=== PATIENT | male | born 1970 | race Two or more races ===

== ENCOUNTER 2020-04-09 16:51 | Inpatient (IN) | payer SELFPAY ==
[~2020-04-09] VITALS: Ht 170.2 cm; Wt 77.1 kg
--- NOTE | 2020-04-09 17:00 | NUR ---
ED Nurse Note: Pt brought in by ambulance from home c/o SOB and weakness x 5 days with fever. Per EMS, O2 sat 89% on room air. Pt arrives on 3 L NC with o2 sat 92%. Oxygen increased to 2 L NC, O2 sat 96% now. Respirations tachy and mildly labored. Pt afebrile upon arrival, reports taking tylenol before coming. Pt reports covid positive. A+Ox4, speaking in complete sentences. Addendum: 04/09/20 at 1834 by BDUTTON CORRECT TIME 1800
[2020-04-09 18:00] VITALS: BP 142/86
--- NOTE | 2020-04-09 18:12 | Emergency Room Report ---
History of Present Illness General Chief Complaint: Dyspnea/Respdistress Source: EMS Present Illness HPI Disclaimer: Please note that this report is being documented using [email or web address] technology. This can lead to erroneous entry secondary to incorrect interpretation by the dictating instrument. HPI: 49-year-old male no reported past medical history presents for shortness of breath from home. Patient apparently went to [facility] on the , was diagnosed with pneumonia and started on p.o. antibiotics. He did have coronavirus testing but states he does not know the result. His daughter did have COVID-19 over the past month. Today's with shortness of breath was worse. Associated with coughing. Brought in by EMS found to be hypoxic around 87% on room air. He denies any pain nausea or vomiting at this time. Allergies: Coded Allergies: No Known Allergies (Unverified , 04/09/20) COVID-19 Screening Contact w/high risk pt: No Experienced COVID-19 symptoms?: Yes COVID-19 Testing performed CRM ADMINISTRATOR: Yes COVID-19 Screening: Positive COVID-19 COVID-19 Testing Source: 04/01/20 Patient History Reviewed Nursing Documentation: PMH: Agreed; PSxH: Agreed Nursing Documentation-PMH Past Medical History: No Stated History Review of Systems All Other Systems: negative except mentioned in HPI Physical Exam Vital Signs Date Time Temp Pulse Resp B/P (MAP) Pulse Ox O2 Delivery O2 Flow Rate FiO2 04/09/20 16:54 98.8 60 16 147/81 (103) 98 Nasal Cannula 2.0 Sp02 EP Interpretation: reviewed, abnormal General Appearance: well appearing, mild distress Head: normocephalic, atraumatic Eyes: bilateral eye PERRL, bilateral eye EOMI ENT: hearing grossly normal, moist mucus membranes Neck: full range of motion, supple Respiratory: lungs clear, normal breath sounds, no rhonchi, no retraction, respiratory distress Cardiovascular #1: normal peripheral pulses, regular rate, rhythm, no murmur Gastrointestinal: non tender, soft, non-distended, no guarding Neurologic: alert, oriented x3, no focal defects Skin: normal color, warm/dry Procedures Critical Care Time Critical Care Time Critical care is managed patient to presentation with COVID-19 requiring my acute intervention. Critical care time is 35 minutes and excludes procedures. Medical Decision Making Diagnostic Impression: Primary Impression: Pneumonia due to COVID-19 virus Additional Impression: Hypoxia ER Course MDM: Differential diagnosis included but not limited to COVID-19, pneumonia, hypoxia, CHF to name a few Clinical course-IV inserted, septic work-up initiated, IV fluids, IV antibiot ics, IV Decadron given. X-ray demonstrated bilateral infiltrates. COVID-19 testing was positive. Has been worsening over the past week. Had been seen at [facility] approximately 1 week ago and has worsened since especially today. Patient requiring oxygen supplementation in the ER and will require admission the hospital for further observation and treatment. Will be admitted to the medical floor. Labs - Laboratory Tests Test 04/09/20 18:05 04/09/20 18:45 White Blood Count 12.1 K/UL (4.8-10.8) H Red Blood Count 5.15 M/UL (4.70-6.10) Hemoglobin 15.5 G/DL (14.2-18.0) Hematocrit 47.9 % (42.0-52.0) Mean Corpuscular Volume 93 FL (80-99) Mean Corpuscular Hemoglobin 30.1 PG (27.0-31.0) Mean Corpuscular Hemoglobin Concent 32.3 G/DL (32.0-36.0) Red Cell Distribution Width 12.4 % (11.6-14.8) Platelet Count 366 K/UL (150-450) Mean Platelet Volume 8.4 FL (6.5-10.1) Neutrophils (%) (Auto) 88.3 % (45.0-75.0) H Lymphocytes (%) (Auto) 7.5 % (20.0-45.0) L Monocytes (%) (Auto) 4.0 % (1.0-10.0) Eosinophils (%) (Auto) 0.0 % (0.0-3.0) Basophils (%) (Auto) 0.2 % (0.0-2.0) Prothrombin Time 10.2 SEC (9.30-11.50) Prothrombin Time INR 0.9 (0.9-1.1) Activated Partial Thromboplast Time 27 SEC (23-33) D-Dimer 0.30 mg/L FEU (0.00-0.49) Urine Color Pending Urine Appearance Pending Urine pH Pending Urine Specific [place] Pending Urine Protein Pending Urine Glucose (UA) Pending Urine Ketones Pending Urine Blood Pending Urine Nitrite Pending Urine Bilirubin Pending Urine Urobilinogen Pending Urine Leukocyte Esterase Pending Sodium Level 134 MMOL/L (136-145) L Potassium Level 4.4 MMOL/L (3.5-5.1) Chloride Level 98 MMOL/L (98-107) Carbon Dioxide Level 27 MMOL/L (21-32) Anion Gap 9 mmol/L (5-15) Blood Urea Nitrogen 13 mg/dL (7-18) Creatinine 0.9 MG/DL (0.55-1.30) Estimated Glomerular Filtration Rate > 60 mL/min (>60) Glucose Level 123 MG/DL (74-106) H Lactic Acid Level 2.40 mmol/L (0.4-2.0) H Calcium Level 8.6 MG/DL (8.5-10.1) Ferritin 993 NG/ML (8-388) H Total Bilirubin 0.8 MG/DL (0.2-1.0) Aspartate Amino Transferase (AST) 110 U/L (15-37) H Alanine Aminotransferase (ALT) 169 U/L (12-78) H Alkaline Phosphatase 322 U/L (46-116) H Lactate Dehydrogenase 446 U/L (81-234) H Troponin I 0.000 ng/mL (0.000-0.056) C-Reactive Protein, Quantitative Pending Pro-B-Type Natriuretic Peptide 95 pg/mL (0-125) Total Protein 7.9 G/DL (6.4-8.2) Albumin 3.4 G/DL (3.4-5.0) Globulin 4.5 g/dL Albumin/Globulin Ratio 0.8 (1.0-2.7) L Lipase 430 U/L (73-393) H Arterial Blood pH 7.480 (7.350-7.450) Arterial Blood Partial Pressure CO2 34.2 mmHg (35.0-45.0) L Arterial Blood Partial Pressure O2 71.1 mmHg (75.0-100.0) L Arterial Blood HCO3 24.9 mmol/L (22.0-26.0) Arterial Blood Oxygen Saturation 94.9 % (95-100) L Arterial Blood Base Excess 1.8 (-2-2) Hakn Test Positive Microbiology Date/Time Source Procedure Growth Status 04/09/20 18:05 Nasopharynx SARS-CoV-2 RdRp Gene Assay - Final Complete On reevaluation: Patient improved on supplemental oxygen Plan-admission to the medical floor under Dr. Macias EKG Diagnostic Results Rate: normal Rhythm: NSR ST Segments: no acute changes Rhythm Strip Diag. Results EP Interpretation: yes Rate: 90 Rhythm: NSR, no ectopy Chest X-Ray Diagnostic Results Chest X-Ray Diagnostic Results : # of Views/Limited/Complete: 1 View Indication: Shortness of Breath EP Interpretation: Yes Interpretation: other - Bilateral multifocal infiltrates no pneumothorax or pulmonary edema Last Vital Signs Date Time Temp Pulse Resp B/P (MAP) Pulse Ox O2 Delivery O2 Flow Rate FiO2 04/09/20 16:54 98.8 60 16 147/81 (103) 98 Nasal Cannula 2.0 Status: improved Disposition: ADMITTED INPATIENT Condition: Serious Referrals: NOT CHOSEN LARISA/,REFERRING (PCP) Ahmet Joshi M.D. Apr 09, 2020 18:12
[2020-04-09 18:38] LABS: HEMATOCRIT 47.9 % (42.0-52.0); HEMOGLOBIN 15.5 G/DL (14.2-18.0); MEAN CORPUSCULAR VOLUME 93 FL (80-99); PLATELET COUNT 366 K/UL (150-450); RED BLOOD COUNT 5.15 M/UL (4.70-6.10); RED CELL DISTRIBUTION WIDTH 12.4 % (11.6-14.8); WHITE BLOOD COUNT 12.1 K/UL (4.8-10.8)
[2020-04-09 18:39] LABS: LYMPHOCYTES % (AUTO) 7.5 % (20.0-45.0); NEUTROPHILS % (AUTO) 88.3 % (45.0-75.0)
[2020-04-09 18:40] LABS: BASOPHILS % (AUTO) 0.2 % (0.0-2.0)
[2020-04-09 18:47] LABS: INR 0.9 (0.9-1.1)
[2020-04-09 18:54] LABS: ANION GAP 9 mmol/L (5-15); BLOOD UREA NITROGEN 13 mg/dL (7-18); CALCIUM 8.6 MG/DL (8.5-10.1); CARBON DIOXIDE 27 MMOL/L (21-32); CHLORIDE 98 MMOL/L (98-107); CREATININE 0.9 MG/DL (0.55-1.30); POTASSIUM 4.4 MMOL/L (3.5-5.1); SODIUM 134 MMOL/L (136-145)
[2020-04-09] MEDS ORDERED: dexAMETHasone 10mg/ml Inj IV ONE (19:00)
[2020-04-09] MEDS ORDERED: Azithromycin 500 MG in NS 275 ML IVPB ONE (19:00)
[2020-04-09] MEDS ORDERED: cefTRIAXone 1 GM in NS 55 ML IV ONE (19:00)
--- NOTE | 2020-04-09 19:10 | NUR ---
ED Nurse Note: Report given to SHERRY Bernstein. Pt in stable condition. plan of care endorsed.
[2020-04-09 19:11] LABS: ALANINE AMINOTRANSFERASE 169 U/L (12-78); ALBUMIN 3.4 G/DL (3.4-5.0); ALBUMIN/GLOBULIN RATIO 0.8 (1.0-2.7); ALKALINE PHOSPHATASE 322 U/L (46-116); ASPARTATE AMINO TRANSFERASE 110 U/L (15-37); BILIRUBIN,TOTAL 0.8 MG/DL (0.2-1.0); FERRITIN 993 NG/ML (8-388); LACTATE DEHYDROGENASE 446 U/L (81-234)
[2020-04-09 19:18] LABS: APPEARANCE,URINE CLEAR; BILIRUBIN, URINE NEGATIVE (NEGATIVE); GLUCOSE, URINE (UA) NEGATIVE (NEGATIVE); KETONES,URINE NEGATIVE (NEGATIVE); LEUKOCYTE ESTERASE ,URINE NEGATIVE (NEGATIVE); NITRITE,URINE NEGATIVE (NEGATIVE); PH,URINE 8 (4.5-8.0); PROTEIN,URINE 1+ (NEGATIVE); UROBILINOGEN,URINE 8 MG/DL (0.0-1.0)
--- NOTE | 2020-04-09 19:20 | NUR ---
ED Nurse Note: Recieved pt awake,A&Ox4, and verbal. Pt is on 4L nc satting 98%. vitals are stable, and no distress. we will keep monitoring the pt
[2020-04-09] MEDS ORDERED: Enoxaparin 40mg Inj SUBQ SCH (19:30)
[2020-04-09 19:50] LABS: COLOR,URINE YELLOW
[2020-04-09 20:45] VITALS: BP 135/78
--- NOTE | 2020-04-09 22:40 | NUR ---
TRANSFER TO FLOOR: Patient transferred to [facility] as ordered, per Colleen . Report given to SHERRY Good. all Belongings and medications sent with the pt. technical staff engineer took the pt on the floor in stable condition.
--- NOTE | 2020-04-09 22:50 | NUR ---
NURSE NOTES: Patient came from ER via gurney. A&OX4. NC 2L on. IV sites are patent and intact. Skin intact. All belonging were checked. Bed in lowest position. Call light within reach. Will continue to monitor.
[2020-04-09 23:00] VITALS: BP 114/77
[2020-04-09] MEDS ORDERED: VITAMIN C500 M1 ORAL (23:19)
[2020-04-09] MEDS ORDERED: DICYCLOMINE HCL20 M1 PO (23:19)
[2020-04-09] MEDS ORDERED: ZITHROMAX250 MG ORAL (23:19)
[2020-04-09] MEDS ORDERED: AMOXICILLIN500 MG ORAL (23:19)
[2020-04-09] MEDS ORDERED: ASPIRIN-LOW81 MG ORAL (23:19)
[2020-04-09] MEDS ORDERED: COMPAZINE5 MG PO (23:19)
[2020-04-09] MEDS ORDERED: VENTOLIN HFA18 GM INH (23:19)
[2020-04-09] MEDS ORDERED: VITAMIN D325 MC1 PO (23:19)
[2020-04-10] MEDS ORDERED: guaiFENesin 100mg/5ml Liq ud ORAL PRN (00:15)
[2020-04-10] MEDS ORDERED: Albuterol 90mcg Inhaler 8gm INH PRN (00:15)
[2020-04-10] MEDS ORDERED: Dicyclomine HCl 10mg/5ml oral soln ORAL PRN (01:00)
[2020-04-10] MEDS ORDERED: Prochlorperazine 10mg tab ORAL PRN (01:00)
[2020-04-10 04:00] VITALS: BP 111/70
[2020-04-10 06:50] LABS: BASOPHILS % (AUTO) 0.2 % (0.0-2.0); HEMATOCRIT 39.2 % (42.0-52.0); HEMOGLOBIN 13.4 G/DL (14.2-18.0); LYMPHOCYTES % (AUTO) 9.2 % (20.0-45.0); MEAN CORPUSCULAR VOLUME 92 FL (80-99); MONOCYTES % (AUTO) 6.3 % (1.0-10.0); NEUTROPHILS % (AUTO) 84.2 % (45.0-75.0); PLATELET COUNT 255 K/UL (150-450); RED BLOOD COUNT 4.28 M/UL (4.70-6.10); RED CELL DISTRIBUTION WIDTH 12.8 % (11.6-14.8); WHITE BLOOD COUNT 11.1 K/UL (4.8-10.8)
--- NOTE | 2020-04-10 07:20 | NUR ---
NURSE HAND-OFF: Important Events on Shift: Patient Status: Diet: Regular Pending Orders: Pending Results/Labs: Pending MD notification: Latest Vital Signs: Temperature 97.4 , Pulse 67 , B/P 111 /70 , Respiratory Rate 17 , O2 SAT 98 , Nasal Cannula, O2 Flow Rate 4.0 . Vital Sign Comment: Latest Schmidt Fall Score: 20 Fall Risk: Low Risk Safety Measures: Call light Within Reach, Bed Alarm Zone 1, Side Rails Side Rails x2, Bed position Low and Locked. Fall Precautions: Patient Fall Education Report given to Roberta POWELL.
--- NOTE | 2020-04-10 07:30 | NUR ---
NURSE NOTES: Patient is in bed awake and able to verbalize needs. Stable. Respirations even on 4l oxygen via nc. C/o dizziness. fall prevention education provided. patient instructed to use call light for assistance, verbalized understanding. Bed alarm on, fall precautions in place. vss. Patient is in bed in locked and lowest position with call light within reach. All safety measures provided. Will continue plan of care.
[2020-04-10 07:40] LABS: PHOSPHORUS 4.4 MG/DL (2.5-4.9)
[2020-04-10 07:46] LABS: ANION GAP 8 mmol/L (5-15); BLOOD UREA NITROGEN 16 mg/dL (7-18); CALCIUM 8.7 MG/DL (8.5-10.1); CARBON DIOXIDE 25 MMOL/L (21-32); CHLORIDE 102 MMOL/L (98-107); CREATININE 0.7 MG/DL (0.55-1.30); POTASSIUM 4.9 MMOL/L (3.5-5.1); SODIUM 135 MMOL/L (136-145)
[2020-04-10 08:00] VITALS: BP 145/84
[2020-04-10] MEDS: dexAMETHasone 10mg/ml Inj IV SCH (08:29)
[2020-04-10] MEDS: Aspirin EC 81mg tab ORAL SCH (08:29)
--- NOTE | 2020-04-10 08:42 | History & Physical ---
History of Present Illness General Reason for Hospitalization: Dyspnea/Respdistress Present Illness HPI 49-year-old male no reported past medical history presents for shortness of breath from home. Patient apparently went to [facility] on the , was diagnosed with pneumonia and started on p.o. antibiotics. He did have coronavirus testing but states he does not know the result. His daughter did have COVID-19 over the past month. Today's with shortness of breath was worse. Associated with coughing. Brought in by EMS found to be hypoxic around 87% on room air. He denies any pain nausea or vomiting at this time. Allergies: Coded Allergies: No Known Allergies (Unverified , 04/09/20) COVID-19 Screening Contact w/high risk pt: Yes Experienced COVID-19 symptoms?: Yes Coronavirus symptoms experienc: Fatigue, Shortness of Breath, Cough Medication History Scheduled Amoxicillin* (Amoxil*), 500 MG ORAL EVERY 8 HOURS, (Reported) Ascorbic Acid* (Vitamin C*), 500 MG ORAL TWICE A DAY, (Reported) Aspirin (Aspirin EC), 81 MG ORAL DAILY, (Reported) Azithromycin* (Zithromax*), 250 MG ORAL DAILY, (Reported) Cholecalciferol (Vitamin D3) (Vitamin D3), 50 MCG PO DAILY, (Reported) Prochlorperazine Maleate (Compazine), 5 MG PO BID, (Reported) Scheduled PRN Albuterol Sulfate (Ventolin Hfa), 2 PUFFS INH EVERY 6 HOURS PRN for Shortness of Breath, (Reported) Dicyclomine Hcl (Dicyclomine Hcl), 20 MG PO QID PRN for cramping, (Reported) [Tylenol 650MG Er Tab], 1 TAB PO Q8H PRN for For Pain, (Reported) Discontinued Medications Cholecalciferol (Vitamin D3) (Vitamin D3*), 25 MCG PO DAILY, (Reported) Discontinued Reason: Prescription changed Patient History Healthcare decision maker Resuscitation status Advanced Directive on File Review of Systems Review of Symptoms General ROS: + fevers Psychological ROS: no depression or mood changes, no memory loss Ophthalmic ROS: no visual changes or eye irritation ENT ROS: no nasal congestion, hearing loss, dizziness Allergy and Immunology ROS: no allergic symptoms or urticaria Hematological and Lymphatic ROS: no swollen glands, unusual bleeding or bruising Endocrine ROS: no polyuria, polydipsia, weight changes, temperature intolerance Respiratory ROS: + cough, + SOB Cardiovascular ROS: no chest pain or dyspnea on exertion Gastrointestinal ROS: denies abdominal pain, bright red blood in stool. Musculoskeletal ROS: no myalgias or arthralgias Neurological ROS: no TIA or stroke symptoms Dermatological ROS: no new or changing skin lesions, rashes or pruritis Physical Exam Physical Exam General appearance: alert, cooperative, no distress, appears stated age Head: Normocephalic, without obvious abnormality, atraumatic Eyes: conjunctivae/corneas clear. PERRL, EOM's intact. Fundi benign Throat: Lips, mucosa, and tongue normal. Teeth and gums normal Neck: supple, symmetrical, trachea midline, no adenopathy, thyroid: not enlarged, symmetric, no tenderness/mass/nodules, no carotid bruit and no JVD Lungs: clear to auscultation bilaterally Heart: regular rate and rhythm, S1, S2 normal, no murmur, click, rub or gallop Abdomen: soft, non-tender. Bowel sounds normal. No masses, no organomegaly Extremities: extremities normal, atraumatic, no cyanosis or edema Pulses: 2+ and symmetric Skin: Skin color, texture, turgor normal. No rashes or lesions Neurologic: Grossly normal Last 24 Hour Vital Signs Date Time Temp Pulse Resp B/P (MAP) Pulse Ox O2 Delivery O2 Flow Rate FiO2 04/10/20 04:00 97.4 67 17 111/70 (84) 98 04/09/20 23:35 Nasal Cannula 4.0 04/09/20 23:00 Nasal Cannula 4.0 04/09/20 23:00 98.4 75 20 114/77 (89) 98 04/09/20 22:40 97.9 84 24 136/72 98 Nasal Cannula 4.0 04/09/20 20:45 98.2 86 21 135/78 98 Nasal Cannula 4.0 04/09/20 18:00 98.5 92 25 142/86 96 Nasal Cannula 4.0 04/09/20 18:00 95 26 Nasal Cannula 2.0 04/09/20 16:54 98.8 60 16 147/81 (103) 98 Nasal Cannula 2.0 Intake and Output 04/09/20 04/10/20 19:00 07:00 Intake Total 360 ml Balance 360 ml Intake Other 360 ml # Voids 1 Laboratory Tests Test 04/09/20 18:05 04/09/20 18:45 04/09/20 22:18 04/10/20 05:07 White Blood Count 12.1 K/UL (4.8-10.8) H 11.1 K/UL (4.8-10.8) H Red Blood Count 5.15 M/UL (4.70-6.10) 4.28 M/UL (4.70-6.10) L Hemoglobin 15.5 G/DL (14.2-18.0) 13.4 G/DL (14.2-18.0) L Hematocrit 47.9 % (42.0-52.0) 39.2 % (42.0-52.0) L Mean Corpuscular Volume 93 FL (80-99) 92 FL (80-99) Mean Corpuscular Hemoglobin 30.1 PG (27.0-31.0) 31.3 PG (27.0-31.0) H Mean Corpuscular Hemoglobin Concent 32.3 G/DL (32.0-36.0) 34.2 G/DL (32.0-36.0) Red Cell Distribution Width 12.4 % (11.6-14.8) 12.8 % (11.6-14.8) Platelet Count 366 K/UL (150-450) 255 K/UL (150-450) Mean Platelet Volume 8.4 FL (6.5-10.1) 7.8 FL (6.5-10.1) Neutrophils (%) (Auto) 88.3 % (45.0-75.0) H 84.2 % (45.0-75.0) H Lymphocytes (%) (Auto) 7.5 % (20.0-45.0) L 9.2 % (20.0-45.0) L Monocytes (%) (Auto) 4.0 % (1.0-10.0) 6.3 % (1.0-10.0) Eosinophils (%) (Auto) 0.0 % (0.0-3.0) 0.0 % (0.0-3.0) Basophils (%) (Auto) 0.2 % (0.0-2.0) 0.2 % (0.0-2.0) Prothrombin Time 10.2 SEC (9.30-11.50) Prothromb Time International Ratio 0.9 (0.9-1.1) Activated Partial Thromboplast Time 27 SEC (23-33) D-Dimer 0.30 mg/L FEU (0.00-0.49) Urine Color Yellow Urine Appearance Clear Urine pH 8 (4.5-8.0) Urine Specific [place] 1.010 (1.005-1.035) Urine Protein 1+ (NEGATIVE) H Urine Glucose (UA) Negative (NEGATIVE) Urine Ketones Negative (NEGATIVE) Urine Blood Negative (NEGATIVE) Urine Nitrite Negative (NEGATIVE) Urine Bilirubin Negative (NEGATIVE) Urine Urobilinogen 8 MG/DL (0.0-1.0) H Urine Leukocyte Esterase Negative (NEGATIVE) Urine RBC 0-2 /HPF (0 - 0) H Urine WBC 0-2 /HPF (0 - 0) Urine Squamous Epithelial Cells None /LPF (NONE/OCC) Urine Bacteria Occasional /HPF (NONE) Sodium Level 134 MMOL/L (136-145) L 135 MMOL/L (136-145) L Potassium Level 4.4 MMOL/L (3.5-5.1) 4.9 MMOL/L (3.5-5.1) Chloride Level 98 MMOL/L (98-107) 102 MMOL/L (98-107) Carbon Dioxide Level 27 MMOL/L (21-32) 25 MMOL/L (21-32) Anion Gap 9 mmol/L (5-15) 8 mmol/L (5-15) Blood Urea Nitrogen 13 mg/dL (7-18) 16 mg/dL (7-18) Creatinine 0.9 MG/DL (0.55-1.30) 0.7 MG/DL (0.55-1.30) Estimat Glomerular Filtration Rate > 60 mL/min (>60) > 60 mL/min (>60) Glucose Level 123 MG/DL (74-106) H 128 MG/DL (74-106) H Lactic Acid Level 2.40 mmol/L (0.4-2.0) H 1.20 mmol/L (0.66-2.22) Calcium Level 8.6 MG/DL (8.5-10.1) 8.7 MG/DL (8.5-10.1) Ferritin 993 NG/ML (8-388) H Total Bilirubin 0.8 MG/DL (0.2-1.0) Aspartate Amino Transf (AST/SGOT) 110 U/L (15-37) H Alanine Aminotransferase (ALT/SGPT) 169 U/L (12-78) H Alkaline Phosphatase 322 U/L (46-116) H Lactate Dehydrogenase 446 U/L (81-234) H Troponin I 0.000 ng/mL (0.000-0.056) C-Reactive Protein, Quantitative 79.7 mg/L (<5) H Pro-B-Type Natriuretic Peptide 95 pg/mL (0-125) Total Protein 7.9 G/DL (6.4-8.2) Albumin 3.4 G/DL (3.4-5.0) Globulin 4.5 g/dL Albumin/Globulin Ratio 0.8 (1.0-2.7) L Lipase 430 U/L (73-393) H Arterial Blood pH 7.480 (7.350-7.450) Arterial Blood Partial Pressure CO2 34.2 mmHg (35.0-45.0) L Arterial Blood Partial Pressure O2 71.1 mmHg (75.0-100.0) L Arterial Blood HCO3 24.9 mmol/L (22.0-26.0) Arterial Blood Oxygen Saturation 94.9 % (95-100) L Arterial Blood Base Excess 1.8 (-2-2) Hank Test Positive Phosphorus Level 4.4 MG/DL (2.5-4.9) Magnesium Level 2.3 MG/DL (1.8-2.4) Microbiology Date/Time Source Procedure Growth Status 04/09/20 18:05 Nasopharynx SARS-CoV-2 RdRp Gene Assay - Final Complete Height (Feet): 5 Height (Inches): 7.00 Weight (Pounds): 170 Medications Current Medications Medications (Trade) Dose Ordered Sig/Dequan Route PRN Reason Start Time Stop Time Status Last Admin Dose Admin Acetaminophen (Tylenol) 650 mg Q6H PRN ORAL Temp >100.5 04/10/20 00:15 05/10/20 00:14 Albuterol Sulfate (Proventil MDI) 2 puff Q4H PRN INH Shortness of Breath 04/10/20 00:15 07/09/20 00:14 Aspirin (Ecotrin) 81 mg DAILY ORAL 1/7/21 09:00 05/25/20 08:59 04/10/20 08:29 Dexamethasone Sodium Phosphate (Decadron 10mg/ ml Inj) 6 mg DAILY IV 04/10/20 09:00 04/19/20 08:59 04/10/20 08:29 Dicyclomine HCl (Bentyl) 20 mg QIDPRN PRN ORAL Abdominal cramps 04/10/20 01:00 07/09/20 00:59 Guaifenesin (Robitussin) 100 mg Q6H PRN ORAL For Cough 04/10/20 00:15 07/09/20 00:14 Heparin Sodium (Porcine) (Heparin 5000 units/ml) 5,000 units EVERY 12 HOURS SUBQ 04/10/20 09:00 05/25/20 08:59 04/10/20 08:30 Prochlorperazine (Compazine) 5 mg BID PRN ORAL Nausea & Vomiting 04/10/20 01:00 05/10/20 00:59 Assessment/Plan Diagnosis [facility]: #COVID pneumonia #hypoxemic resp failure #sepsis - admit inpatient - ID eval - pulm eval - dexamethsone - remdesevir - breathing tx - supplemental O2 - DCT ppx - monitor labs - avoid nephrotoxins [facility] Hospital declaration I spent 70 minutes on this patient's case, and 35 minutes was dedicated to counseling and/or care coordination. MIPS (Merit-based Incentive Payment System) Applicable CPT: 88715, 15422 CHECK ALL THAT ARE MET: Measure #5 (CHF): All ages. Prescribe DORIS/ARB upon discharge for patients with left ventricular systolic dysfunction. If not, the reason is clearly documented in the medical chart. Measure #8 (CHF): All ages. Prescribe a beta camille upon discharge for patients with left ventricular systolic dysfunction. If not, the reason is clearly documented in the medical chart. Measure #47 Advance care plan or surrogate decision maker documented in the medical record. Measure #130 The provider has documented, updated, or reviewed the patients current medication list and has documented it in the patients note. Measure #374 (All): Send report to referring provider. Measure #407(Sepsis due to MSSA bacteremia): Age 18+ Patient treated with a beta-lactam antibiotic (Nafcillin, Oxacillin or Cefazolin) as definitive therapy. MEDICAL COMPLEXITY High complexity medical decision making (need 2/3 categories) Problem - need 4 points Acute/new problem with new plan for workup (4 points, 1 max) Acute/new problem without additional workup (3 points, 1 max) Unstable chronic problem actively being managed (2 point each, 2 max) Stable chronic problem actively being managed (1 point each, 2 max) Self-limited/transient process (constipation, muscle ache, etc) (1 point each, 2 max) Data - need 4 points Reviewed labs/imaging studies (1 points, 2 max) Independent review of imaging (EKG, xrays, etc) (2 points, 2 max) Discussed case with consult/other MD/RN (2 points, 2 max) High Risk - qualify if have one of the following: Severe exacerbation of acute problem, acute mental status change, IV live cotics, monitoring drug levels (vancomycin, INR, tacrolimus etc) Gokul Macias M.D. Apr 10, 2020 08:42
[2020-04-10] MEDS ORDERED: Heparin 5000 units/ml inj SUBQ SCH (09:00)
[2020-04-10 12:00] VITALS: BP 120/81
--- NOTE | 2020-04-10 12:10 | NUR ---
CASE MANAGEMENT:INITIAL REVIEW 49 YO MALE TON FROM HOME CC;DYSPNEA. RESPIRATORY DISTRESS. SI;COVID PNEUMONIA. HYPOXIA. 98.5 95 26 147/81 96% 4L NC WBC 12.1 NA 134 FERRITIN 993 AST 110 ALT 169 ALP 322 LDH 446 CRP 79.7 LIPASE 430 UA+ PROTEIN, UROBILINOGEN, RBC COVID RAPID ~ POSITIVE IS;ZITHROMAX IV DECADRON IV ROCEPHIN IV IVF NS BOLUS LOVENOX SQ ADMITTED TO MED SURG MED SURG STATUS DCP;FROM HOME Addendum: 04/10/20 at 1238 by BE MURRELL LVN CM INTERQUAL CRITERIA MET
[2020-04-10] MEDS ORDERED: TYLENOL 650 MG PO (14:26)
[2020-04-10] MEDS ORDERED: VITAMIN D350 MCG PO (14:26)
--- NOTE | 2020-04-10 14:33 | Consultation ---
Consult Note Consult Note DATE OF CONSULTATION: 04/10/2020 CONSULTING PHYSICIAN: Ever Topete MD. ATTENDING PHYSICIAN: Dr. Macias REASON FOR CONSULTATION: COVID-19 pneumonia, hypoxia HISTORY OF PRESENT ILLNESS: This is a 49-year-old male with no pertinent past medical history who presented for shortness of breath from home. Patient apparently went to [facility] on 30 March and was diagnosed with pneumonia and was started on oral antibiotics. Patient reported of sick contact with his daughter who had COVID-19 within the past month. He reports that shortness of breath is associated with cough. He was hypoxic around 87% on room air on arrival. Patient's initial laboratory studies show leukocytosis, mild anemia, hyponatremia, hyperglycemia, and respiratory alkalosis. Chest x-ray read by ER MD shows bilateral multifocal infiltrates without pulmonary edema. On evaluation patient is laying in bed with increased work of breathing on 4 L NC. Patient is saturating at 96%. PAST MEDICAL HISTORY: None according to patient MEDICATIONS: Albuterol, amoxicillin, ascorbic acid, aspirin, azithromycin, cho lecalciferol, dicyclomine, prochlorperazine ALLERGIES: No known allergies FAMILY HISTORY: Unknown PERSONAL/SOCIAL HISTORY: Patient lives at home REVIEW OF SYSTEMS: None except for mentioned in HPI PHYSICAL EXAMINATION: VITAL SIGNS: Blood pressure 120/81, heart rate 72, respiratory rate 18, weight 77 kg, height 170 cm General: Patient in bed, NAD HEENT: Head exam reveals that the head is normocephalic, atraumatic without deformity or unusual swelling. Pupils are PERRLA. Wearing facemask CHEST AND LUNGS: Increased work of breathing, reveals clear, normal, symmetrical breath sounds with no adventitious sounds. CARDIOVASCULAR: Reveals normal S1, S2 without murmurs, rubs, or clicks. ABDOMEN: Soft with no tenderness or organomegaly. RECTAL: Deferred. MUSCULOSKELETAL: There is no tenderness to palpation. Range of motion is normal. NEUROLOGICAL: Alert and oriented x3 , nonfocal LABORATORY DATA: Laboratory testing shows WBC 11.1, hemoglobin 13.4, hematocrit 39.2. Chemistries show sodium 135, glucose 128, lactate 2.4 Urinalysis shows 1+ protein Assessment/Plan 1. COVID-19 pneumonia with hypoxia -On remdesivir per ID (04/10-) -On Decadron - s/p broad-spectrum antibiotics in ER -Continue supplemental oxygen 2. Leukocytosis, likely secondary to #1 -Management per ID 3. Hyponatremia -Per primary MD 4. Hyperglycemia -Monitor BG -Of note patient is on Decadron 5. Elevated inflammatory markers, likely secondary to #1 - We will continue lovenox 6. Elevated LFT -Trend LFTs -Per primary MD The care for this patient was discussed with my supervising physician. Time spent for this case was approximately 31 minutes. Da Santillan Apr 10, 2020 14:33
--- NOTE | 2020-04-10 15:09 | Diagnostic Imaging Report ---
Procedure: XRAY Chest 1v Reason for study: Reason For Exam: SOB Comparison films: None. FINDINGS: A single one view chest is obtained. Vascularity is normal. There are bilateral patchy infiltrates. Cardiac and mediastinal silhouette are within normal limits. CP angles are sharp. The bony thorax appear unremarkable. IMPRESSION: Bilateral patchy infiltrates.
[2020-04-10 16:00] VITALS: BP 113/78
--- NOTE | 2020-04-10 16:44 | Consultation ---
DATE OF CONSULTATION: 04/10/2020 INFECTIOUS DISEASE CONSULT This consult is for coverage of Dr. Sanders. PRIMARY ATTENDING PHYSICIAN: Gokul Macais M.D. REASON FOR CONSULT: COVID-19 disease. HISTORY OF PRESENT ILLNESS: The patient is a 49-year-old male admitted yesterday complaining of shortness of breath. He was diagnosed with pneumonia in [facility] on March 28, 2020, but was discharged home. According to the chart, he was positive for COVID-19 since 04/01/2020. At the time of admission, he was hypoxemic with O2 saturation of 87% on room air. PAST MEDICAL HISTORY: Insignificant. MEDICATIONS: Getting aspirin, heparin, dexamethasone, dicyclomine, Compazine, Tylenol, albuterol. Got one dose ceftriaxone and azithromycin in the ER. SOCIAL HISTORY: . Denies alcohol, drug abuse, or smoking. States that he has 2 daughters that are COVID positive from the [facility]. REVIEW OF SYSTEMS: Has shortness of breath, coughing, profound weakness when he stands up. Substernal chest pain. PHYSICAL EXAMINATION: VITAL SIGNS: Temperature 97.9, pulse 81, blood pressure 145/84. GENERAL APPEARANCE: The patient seems to have normal weight. HEAD AND NECK: [place] conjunctivae. HEART: Normal rate. LUNGS: Clear. Getting oxygen by nasal cannula 4 L/minute. ABDOMEN: Soft and nontender. EXTREMITIES: No edema. NEUROLOGIC: He is awake, alert, and oriented x3. LABORATORY AND DIAGNOSTIC DATA: WBC today is 11.1, hemoglobin 13.4, hematocrit 39.2, platelets are 255. ABG showed a pH of 7.48, pCO2 of 34, pO2 of 71.1, O2 saturation 94.9. COVID test was positive. IMPRESSION: COVID-19 disease, hypoxia. RECOMMENDATIONS: Continue dexamethasone. It seemed that the patient passed a 10-day window for starting remdesivir. We will follow up the clinical course. Continue isolation. At the end of my exam, I thank Dr. Macias for involving me in the care of this patient. Tom Quan M.D. DR: MELISSA JOB#: [id number] CC: DINESH
--- NOTE | 2020-04-10 19:22 | NUR ---
NURSE HAND-OFF: Important Events on Shift: o2 therapy Patient Status: stable Diet: reg Pending Orders: n/a Pending Results/Labs:n/a Pending MD notification:n/a Latest Vital Signs: Temperature 97.9 , Pulse 75 , B/P 113 /78 , Respiratory Rate 18 , O2 SAT 95 , Nasal Cannula, O2 Flow Rate 4.0 . Vital Sign Comment: n/a Latest Schmidt Fall Score: 20 Fall Risk: Low Risk Safety Measures: Call light Within Reach, Bed Alarm Zone 1, Side Rails Side Rails x2, Bed position Low and Locked. Fall Precautions: Patient Fall Education Report given to Hector POWELL.
[2020-04-10 19:41] VITALS: BP 114/74
--- NOTE | 2020-04-10 19:42 | NUR ---
NURSE NOTES: Patient in bed, awake, alert and verbally responsive. Able to make needs known. REspiration is even, nasal cannula 4 L. Sob on exertion/ambulation. No complaint of pain or discomfort noted. Abdomen is soft and non distended. Iv site noted. Kept clean comfortable. Bed in low and locked position. Provided safe environment. Call light is at bedside. Will continue plan of care.
[2020-04-10] MEDS ORDERED: Loading Dose:Remdesivir 200mg/NS 210ml IV SCH ×2 (21:00)
[2020-04-11] VITALS: BP 109/68
[2020-04-11 04:00] VITALS: BP 113/76
[2020-04-11 06:56] LABS: BASOPHILS % (AUTO) 1.1 % (0.0-2.0); EOSINOPHILS % (AUTO) 0.1 % (0.0-3.0); HEMATOCRIT 38.2 % (42.0-52.0); HEMOGLOBIN 13.3 G/DL (14.2-18.0); LYMPHOCYTES % (AUTO) 12.6 % (20.0-45.0); MEAN CORPUSCULAR VOLUME 90 FL (80-99); MONOCYTES % (AUTO) 7.8 % (1.0-10.0); NEUTROPHILS % (AUTO) 78.4 % (45.0-75.0); PLATELET COUNT 395 K/UL (150-450); RED BLOOD COUNT 4.24 M/UL (4.70-6.10); RED CELL DISTRIBUTION WIDTH 12.9 % (11.6-14.8); WHITE BLOOD COUNT 12.6 K/UL (4.8-10.8)
--- NOTE | 2020-04-11 07:16 | NUR ---
NURSE HAND-OFF: Important Events on Shift:WNL Patient Status: Diet: Pending Orders: Pending Results/Labs: Pending MD notification: Latest Vital Signs: Temperature 97.0 , Pulse 58 , B/P 113 /76 , Respiratory Rate 20 , O2 SAT 96 , Nasal Cannula, O2 Flow Rate 4.0 . Vital Sign Comment: Latest Schmidt Fall Score: 20 Fall Risk: Low Risk Safety Measures: Call light Within Reach, Bed Alarm Zone 1, Side Rails Side Rails x2, Bed position Low and Locked. Fall Precautions: Patient Fall Education Report given to Yadiel Madera.
[2020-04-11 07:19] LABS: ALANINE AMINOTRANSFERASE 160 U/L (12-78); ALBUMIN 2.6 G/DL (3.4-5.0); ALBUMIN/GLOBULIN RATIO 0.6 (1.0-2.7); ALKALINE PHOSPHATASE 259 U/L (46-116); ANION GAP 8 mmol/L (5-15); ASPARTATE AMINO TRANSFERASE 84 U/L (15-37); BILIRUBIN,TOTAL 0.4 MG/DL (0.2-1.0); BLOOD UREA NITROGEN 18 mg/dL (7-18); CALCIUM 8.6 MG/DL (8.5-10.1); CARBON DIOXIDE 26 MMOL/L (21-32); CHLORIDE 103 MMOL/L (98-107); CREATININE 0.8 MG/DL (0.55-1.30); POTASSIUM 4.2 MMOL/L (3.5-5.1); SODIUM 137 MMOL/L (136-145)
--- NOTE | 2020-04-11 07:30 | NUR ---
NURSE NOTES: Patient is in bed awake and able to verbalize needs. Stable. Breathing is even on 4L oxygen via nc, SOB noted upon exertion. Patient instructed to use call light for assistance, verbalized understanding. All safety measures provided. Patient is in bed in locked and lowest position with call light within reach. Will continue plan of care.
[2020-04-11 08:00] VITALS: BP 133/78
[2020-04-11] MEDS: Enoxaparin 40mg Inj SUBQ SCH (08:25)
[2020-04-11] MEDS: dexAMETHasone 10mg/ml Inj IV SCH (08:27)
[2020-04-11] MEDS: Aspirin EC 81mg tab ORAL SCH (08:27)
--- NOTE | 2020-04-11 10:45 | Pulmonology Progress Note ---
Subjective Constitutional: Reports: no symptoms HEENT: Repors: no symptoms Respiratory: Reports: dry cough, shortness of breath Cardiovascular: Reports: no symptoms Gastrointestinal/Abdominal: Reports: no symptoms Allergies: Coded Allergies: No Known Allergies (Unverified , 04/09/20) Objective Last 24 Hour Vital Signs Date Time Temp Pulse Resp B/P (MAP) Pulse Ox O2 Delivery O2 Flow Rate FiO2 04/11/20 04:00 97.0 58 20 113/76 (88) 96 04/11/20 00:00 97.3 59 16 109/68 (82) 95 04/10/20 20:19 Nasal Cannula 4.0 04/10/20 19:41 97.9 62 18 114/74 (87) 97 04/10/20 16:00 97.9 75 18 113/78 (90) 95 04/10/20 12:00 97.5 72 18 120/81 (94) 96 Intake and Output 04/10/20 04/11/20 19:00 07:00 Intake Total 600 ml 1250 ml Balance 600 ml 1250 ml Intake Oral 1000 ml IV Total 250 ml Other 600 ml # Voids 3 # Bowel Movements 1 Objective 04/11 saturating at 96% on 4L NC HEENT: atraumatic Respiratory: lungs clear Cardiovascular: normal rate, regular rhythm Abdomen: soft, non tender Microbiology Date/Time Source Procedure Growth Status 04/09/20 18:20 Blood Blood Culture - Preliminary NO GROWTH AFTER 24 HOURS Resulted 04/09/20 18:05 Nasopharynx SARS-CoV-2 RdRp Gene Assay - Final Complete 04/09/20 18:05 Blood Blood Culture - Preliminary NO GROWTH AFTER 24 HOURS Resulted Laboratory Tests 04/11/20 05:10: White Blood Count 12.6H, Red Blood Count 4.24L, Hemoglobin 13.3L, Hematocrit 38.2L, Mean Corpuscular Volume 90, Mean Corpuscular Hemoglobin 31.3H, Mean Corpuscular Hemoglobin Concent 34.7, Red Cell Distribution Width 12.9, Platelet Count 395#, Mean Platelet Volume 7.4, Neutrophils (%) (Auto) 78.4H, Lymphocytes (%) (Auto) 12.6L, Monocytes (%) (Auto) 7.8, Eosinophils (%) (Auto) 0.1, Basophils (%) (Auto) 1.1, Sodium Level 137, Potassium Level 4.2, Chloride Level 103, Carbon Dioxide Level 26, Anion Gap 8, Blood Urea Nitrogen 18, Creatinine 0.8, Estimat Glomerular Filtration Rate > 60, Glucose Level 112H, Calcium Level 8.6, Phosphorus Level 4.0, Magnesium Level 2.3, Total Bilirubin 0.4, Direct Bilirubin 0.2, Aspartate Amino Transf (AST/SGOT) 84H, Alanine Aminotransferase (ALT/SGPT) 160H, Alkaline Phosphatase 259H, Total Protein 6.9, Albumin 2.6L, Globulin 4.3, Albumin/Globulin Ratio 0.6L Current Medications Medications (Trade) Dose Ordered Sig/Dequan Route PRN Reason Start Time Stop Time Status Last Admin Dose Admin Acetaminophen (Tylenol) 650 mg Q6H PRN ORAL Temp >100.5 04/10/20 00:15 05/10/20 00:14 Albuterol Sulfate (Proventil MDI) 2 puff Q4H PRN INH Shortness of Breath 04/10/20 00:15 07/09/20 00:14 Aspirin (Ecotrin) 81 mg DAILY ORAL 04/10/20 09:00 05/25/20 08:59 04/11/20 08:27 Dexamethasone Sodium Phosphate (Decadron 10mg/ ml Inj) 6 mg DAILY IV 04/10/20 09:00 04/19/20 08:59 04/11/20 08:27 Dicyclomine HCl (Bentyl) 20 mg QIDPRN PRN ORAL Abdominal cramps 04/10/20 01:00 07/09/20 00:59 Enoxaparin Sodium (Lovenox) 40 mg DAILY SUBQ 04/11/20 09:00 07/10/20 08:59 04/11/20 08:25 Guaifenesin (Robitussin) 100 mg Q6H PRN ORAL For Cough 04/10/20 00:15 07/09/20 00:14 Prochlorperazine (Compazine) 5 mg BID PRN ORAL Nausea & Vomiting 04/10/20 01:00 05/10/20 00:59 Remdesivir 100 mg/ Sodium Chloride 250 ml @ 250 mls/hr Q24H IV 04/11/20 21:00 04/14/20 21:59 Assessment/Plan Assessment/Plan 1. COVID-19 pneumonia with hypoxia -On remdesivir per ID (04/10-) -On Decadron (04/10-) - s/p broad-spectrum antibiotics in ER - Continue supplemental oxygen; wean down as tolerated 2. Leukocytosis, likely secondary to #1 -Management per ID 3. Hyponatremia; resolved -Per primary MD 4. Hyperglycemia -Monitor BG -Of note patient is on Decadron 5. Elevated inflammatory markers, likely secondary to #1 - We will continue lovenox 6. Elevated LFT -Trend LFTs; elevated but trending down -Per primary MD The care for this patient was discussed with my supervising physician. Time spent for this case was approximately 31 minutes. Da Santillan Apr 11, 2020 10:45
[2020-04-11 12:00] VITALS: BP 120/75
--- NOTE | 2020-04-11 12:11 | Infectious Diseases Prog Note ---
Assessment/Plan Assessment/Plan antibiotics ; remdesivir A 1. covid 19 pneumonia on 4 liters O2 with saturation 97 % P 1. continue remdesivir day 2 2. continue dexamethasone day 3 3. continue isolation Subjective Constitutional: Denies: fever, chills Respiratory: Reports: shortness of breath - less, dry cough Gastrointestinal/Abdominal: Denies: nausea, vomiting, diarrhea Musculoskeletal: Reports: pain - in back Allergies: Coded Allergies: No Known Allergies (Unverified , 04/09/20) Objective Last 24 Hour Vital Signs Date Time Temp Pulse Resp B/P (MAP) Pulse Ox O2 Delivery O2 Flow Rate FiO2 04/11/20 09:00 Nasal Cannula 4.0 04/11/20 08:00 97.9 63 20 133/78 (96) 97 04/11/20 04:00 97.0 58 20 113/76 (88) 96 04/11/20 00:00 97.3 59 16 109/68 (82) 95 04/10/20 20:19 Nasal Cannula 4.0 04/10/20 19:41 97.9 62 18 114/74 (87) 97 04/10/20 16:00 97.9 75 18 113/78 (90) 95 Height (Feet): 5 Height (Inches): 7.00 Weight (Pounds): 170 Microbiology Date/Time Source Procedure Growth Status 04/09/20 18:20 Blood Blood Culture - Preliminary NO GROWTH AFTER 24 HOURS Resulted 04/09/20 18:05 Nasopharynx SARS-CoV-2 RdRp Gene Assay - Final Complete 04/09/20 18:05 Blood Blood Culture - Preliminary NO GROWTH AFTER 24 HOURS Resulted Laboratory Tests Test 04/11/20 05:10 White Blood Count 12.6 K/UL (4.8-10.8) H Red Blood Count 4.24 M/UL (4.70-6.10) L Hemoglobin 13.3 G/DL (14.2-18.0) L Hematocrit 38.2 % (42.0-52.0) L Mean Corpuscular Volume 90 FL (80-99) Mean Corpuscular Hemoglobin 31.3 PG (27.0-31.0) H Mean Corpuscular Hemoglobin Concent 34.7 G/DL (32.0-36.0) Red Cell Distribution Width 12.9 % (11.6-14.8) Platelet Count 395 K/UL (150-450) # Mean Platelet Volume 7.4 FL (6.5-10.1) Neutrophils (%) (Auto) 78.4 % (45.0-75.0) H Lymphocytes (%) (Auto) 12.6 % (20.0-45.0) L Monocytes (%) (Auto) 7.8 % (1.0-10.0) Eosinophils (%) (Auto) 0.1 % (0.0-3.0) Basophils (%) (Auto) 1.1 % (0.0-2.0) Sodium Level 137 MMOL/L (136-145) Potassium Level 4.2 MMOL/L (3.5-5.1) Chloride Level 103 MMOL/L (98-107) Carbon Dioxide Level 26 MMOL/L (21-32) Anion Gap 8 mmol/L (5-15) Blood Urea Nitrogen 18 mg/dL (7-18) Creatinine 0.8 MG/DL (0.55-1.30) Estimat Glomerular Filtration Rate > 60 mL/min (>60) Glucose Level 112 MG/DL (74-106) H Calcium Level 8.6 MG/DL (8.5-10.1) Phosphorus Level 4.0 MG/DL (2.5-4.9) Magnesium Level 2.3 MG/DL (1.8-2.4) Total Bilirubin 0.4 MG/DL (0.2-1.0) Direct Bilirubin 0.2 MG/DL (0.0-0.3) Aspartate Amino Transf (AST/SGOT) 84 U/L (15-37) H Alanine Aminotransferase (ALT/SGPT) 160 U/L (12-78) H Alkaline Phosphatase 259 U/L (46-116) H Total Protein 6.9 G/DL (6.4-8.2) Albumin 2.6 G/DL (3.4-5.0) L Globulin 4.3 g/dL Albumin/Globulin Ratio 0.6 (1.0-2.7) L Current Medications Medications (Trade) Dose Ordered Sig/Dequan Route PRN Reason Start Time Stop Time Status Last Admin Dose Admin Acetaminophen (Tylenol) 650 mg Q6H PRN ORAL Temp >100.5 04/10/20 00:15 05/10/20 00:14 Albuterol Sulfate (Proventil I) 2 puff Q4H PRN INH Shortness of Breath 04/10/20 00:15 07/09/20 00:14 Aspirin (Ecotrin) 81 mg DAILY ORAL 04/10/20 09:00 05/25/20 08:59 04/11/20 08:27 Dexamethasone Sodium Phosphate (Decadron 10mg/ ml Inj) 6 mg DAILY IV 04/10/20 09:00 04/19/20 08:59 04/11/20 08:27 Dicyclomine HCl (Bentyl) 20 mg QIDPRN PRN ORAL Abdominal cramps 04/10/20 01:00 07/09/20 00:59 Enoxaparin Sodium (Lovenox) 40 mg DAILY SUBQ 04/11/20 09:00 07/10/20 08:59 04/11/20 08:25 Guaifenesin (Robitussin) 100 mg Q6H PRN ORAL For Cough 04/10/20 00:15 07/09/20 00:14 Prochlorperazine (Compazine) 5 mg BID PRN ORAL Nausea & Vomiting 04/10/20 01:00 05/10/20 00:59 Remdesivir 100 mg/ Sodium Chloride 250 ml @ 250 mls/hr Q24H IV 04/11/20 21:00 04/14/20 21:59 Chalino Sanders MD Apr 11, 2020 12:11
--- NOTE | 2020-04-11 12:58 | Cardiology Report ---
APPROVED REPORT EKG Measurement Heart [id number] <Conclusion> Normal sinus rhythm Normal ECG
--- NOTE | 2020-04-11 14:16 | NUR ---
CASE MANAGEMENT:REVIEW SI;COVID PNEUMONIA. HYPOXIA. 97.9 58 20 133/78 95% 4L NC WBC 12.6 AST 84 ALT 160 ALP 259 ALB 2.6 IS;REMDESIVIR IV Q24 LOVENOX SQ QD ASA PO QD DECADRON IV QD MED SURG STATUS DCP;FROM HOME
--- NOTE | 2020-04-11 15:24 | Internal Med Progress Note ---
Subjective Physician Name Gokul Macias Attending Physician Gokul Macias M.D. Current Medications Medications (Trade) Dose Ordered Sig/Dequan Route PRN Reason Start Time Stop Time Status Last Admin Dose Admin Acetaminophen (Tylenol) 650 mg Q6H PRN ORAL Temp >100.5 04/10/20 00:15 05/10/20 00:14 Albuterol Sulfate (Proventil MDI) 2 puff Q4H PRN INH Shortness of Breath 04/10/20 00:15 07/09/20 00:14 Aspirin (Ecotrin) 81 mg DAILY ORAL 04/10/20 09:00 05/25/20 08:59 04/11/20 08:27 Dexamethasone Sodium Phosphate (Decadron 10mg/ ml Inj) 6 mg DAILY IV 04/10/20 09:00 04/19/20 08:59 04/11/20 08:27 Dicyclomine HCl (Bentyl) 20 mg QIDPRN PRN ORAL Abdominal cramps 04/10/20 01:00 07/09/20 00:59 Enoxaparin Sodium (Lovenox) 40 mg DAILY SUBQ 04/11/20 09:00 07/10/20 08:59 04/11/20 08:25 Guaifenesin (Robitussin) 100 mg Q6H PRN ORAL For Cough 04/10/20 00:15 07/09/20 00:14 Prochlorperazine (Compazine) 5 mg BID PRN ORAL Nausea & Vomiting 04/10/20 01:00 05/10/20 00:59 Remdesivir 100 mg/ Sodium Chloride 250 ml @ 250 mls/hr Q24H IV 04/11/20 21:00 04/14/20 21:59 Allergies: Coded Allergies: No Known Allergies (Unverified , 04/09/20) ROS Limited/Unobtainable: No Constitutional: Reports: weakness HEENT: Denies: no symptoms, eye pain, blurred vision, tearing, double vision, ear pain, ear discharge, nose pain, nose congestion, throat pain, throat swelling, mouth pain, mouth swelling, other Respiratory: Denies: no symptoms, cough, orthopnea, shortness of breath, SOB with excertion, SOB at rest, sputum, stridor, wheezing, other Gastrointestinal/Abdominal: Denies: no symptoms, abdomen distended, abdominal pain, black stools, tarry stools, blood in stool, constipated, diarrhea, difficulty swallowing, nausea, poor appetite, poor fluid intake, rectal bleeding, vomiting, other Genitourinary: Denies: no symptoms, burning, discharge, frequency, flank pain, hematuria, incontinence, pain, urgency, other Neurologic/Psychiatric: Denies: no symptoms, anxiety, depressed, emotional problems, headache, numbness, paresthesia, pre-existing deficit, seizure, tingling, tremors, weakness, other All Systems: reviewed and negative except above Objective Last Vital Signs Date Time Temp Pulse Resp B/P (MAP) Pulse Ox O2 Delivery O2 Flow Rate FiO2 04/11/20 12:00 98.0 64 18 120/75 (90) 97 04/11/20 09:00 Nasal Cannula 4.0 Laboratory Tests Test 04/11/20 05:10 White Blood Count 12.6 K/UL (4.8-10.8) H Red Blood Count 4.24 M/UL (4.70-6.10) L Hemoglobin 13.3 G/DL (14.2-18.0) L Hematocrit 38.2 % (42.0-52.0) L Mean Corpuscular Volume 90 FL (80-99) Mean Corpuscular Hemoglobin 31.3 PG (27.0-31.0) H Mean Corpuscular Hemoglobin Concent 34.7 G/DL (32.0-36.0) Red Cell Distribution Width 12.9 % (11.6-14.8) Platelet Count 395 K/UL (150-450) # Mean Platelet Volume 7.4 FL (6.5-10.1) Neutrophils (%) (Auto) 78.4 % (45.0-75.0) H Lymphocytes (%) (Auto) 12.6 % (20.0-45.0) L Monocytes (%) (Auto) 7.8 % (1.0-10.0) Eosinophils (%) (Auto) 0.1 % (0.0-3.0) Basophils (%) (Auto) 1.1 % (0.0-2.0) Sodium Level 137 MMOL/L (136-145) Potassium Level 4.2 MMOL/L (3.5-5.1) Chloride Level 103 MMOL/L (98-107) Carbon Dioxide Level 26 MMOL/L (21-32) Anion Gap 8 mmol/L (5-15) Blood Urea Nitrogen 18 mg/dL (7-18) Creatinine 0.8 MG/DL (0.55-1.30) Estimat Glomerular Filtration Rate > 60 mL/min (>60) Glucose Level 112 MG/DL (74-106) H Calcium Level 8.6 MG/DL (8.5-10.1) Phosphorus Level 4.0 MG/DL (2.5-4.9) Magnesium Level 2.3 MG/DL (1.8-2.4) Total Bilirubin 0.4 MG/DL (0.2-1.0) Direct Bilirubin 0.2 MG/DL (0.0-0.3) Aspartate Amino Transf (AST/SGOT) 84 U/L (15-37) H Alanine Aminotransferase (ALT/SGPT) 160 U/L (12-78) H Alkaline Phosphatase 259 U/L (46-116) H Total Protein 6.9 G/DL (6.4-8.2) Albumin 2.6 G/DL (3.4-5.0) L Globulin 4.3 g/dL Albumin/Globulin Ratio 0.6 (1.0-2.7) L Microbiology Date/Time Source Procedure Growth Status 04/09/20 18:20 Blood Blood Culture - Preliminary NO GROWTH AFTER 24 HOURS Resulted 04/09/20 18:05 Nasopharynx SARS-CoV-2 RdRp Gene Assay - Final Complete 04/09/20 18:05 Blood Blood Culture - Preliminary NO GROWTH AFTER 24 HOURS Resulted Intake and Output 04/10/20 04/11/20 19:00 07:00 Intake Total 600 ml 1250 ml Balance 600 ml 1250 ml Intake Oral 1000 ml IV Total 250 ml Other 600 ml # Voids 3 # Bowel Movements 1 Objective General appearance: alert, cooperative, no distress, appears stated age Head: Normocephalic, without obvious abnormality, atraumatic Eyes: conjunctivae/corneas clear. PERRL, EOM's intact. Fundi benign Throat: Lips, mucosa, and tongue normal. Teeth and gums normal Neck: supple, symmetrical, trachea midline, no adenopathy, thyroid: not enlarge d, symmetric, no tenderness/mass/nodules, no carotid bruit and no JVD Lungs: clear to auscultation bilaterally Heart: regular rate and rhythm, S1, S2 normal, no murmur, click, rub or gallop Abdomen: soft, non-tender. Bowel sounds normal. No masses, no organomegaly Extremities: extremities normal, atraumatic, no cyanosis or edema Pulses: 2+ and symmetric Skin: Skin color, texture, turgor normal. No rashes or lesions Neurologic: Grossly normal Assessment/Plan Assessment/Plan #COVID pneumonia #hypoxemic resp failure #sepsis - admit inpatient - ID eval - pulm eval - dexamethsone - remdesevir - breathing tx - supplemental O2 - DCT ppx - monitor labs - avoid nephrotoxins Gokul Macias M.D. Apr 11, 2020 15:24
[2020-04-11 16:00] VITALS: BP 134/78
--- NOTE | 2020-04-11 18:54 | NUR ---
NURSE HAND-OFF: Important Events on Shift: satting 93% on ra. Patient Status: stable Diet: reg Pending Orders: n/a Pending Results/Labs:n/a Pending MD notification:n/a Latest Vital Signs: Temperature 97.9 , Pulse 68 , B/P 134 /78 , Respiratory Rate 18 , O2 SAT 94 , Nasal Cannula, O2 Flow Rate 4.0 . Vital Sign Comment: n/a Latest Schmidt Fall Score: 20 Fall Risk: Low Risk Safety Measures: Call light Within Reach, Bed Alarm Zone 1, Side Rails Side Rails x2, Bed position Low and Locked. Fall Precautions: Patient Fall Education. Addendum: 04/11/20 at 1956 by JOSS GARCIA RN report given to Hector POWELL.
--- NOTE | 2020-04-11 19:55 | NUR ---
NURSE NOTES: Patient in bed, awake, alert and verbally responsive. Able to make needs known. Respiration is even and unlabored. On room air. Kept clean and comfortable. Bed in low and locked position. Provided safe environment. No complaint of pain or discomfort noted. Skin is w3arm and dry to touch. Abdomen is soft and non distended. Call light is at bedside. Will continue plan of care.
[2020-04-11 20:00] VITALS: BP 117/75
[2020-04-11] MEDS: Maintenance Dose:Remdesivir 100mg/NS 230ml x 4 Doses IV SCH ×2 (20:32)
[2020-04-12] VITALS: BP 121/72
[2020-04-12 04:00] VITALS: BP 111/67
--- NOTE | 2020-04-12 07:12 | NUR ---
NURSE HAND-OFF: Important Events on Shift:WNL Patient Status: Diet: Pending Orders: Pending Results/Labs: Pending MD notification: Latest Vital Signs: Temperature 97.7 , Pulse 67 , B/P 111 /67 , Respiratory Rate 20 , O2 SAT 94 , Nasal Cannula, O2 Flow Rate 4.0 . Vital Sign Comment: Latest Schmidt Fall Score: 20 Fall Risk: Low Risk Safety Measures: Call light Within Reach, Bed Alarm Zone 1, Side Rails Side Rails x2, Bed position Low and Locked. Fall Precautions: Patient Fall Education Report given to SHERRY Simental.
[2020-04-12 07:51] LABS: BASOPHILS % (AUTO) 0.9 % (0.0-2.0); EOSINOPHILS % (AUTO) 0.1 % (0.0-3.0); HEMATOCRIT 38.3 % (42.0-52.0); HEMOGLOBIN 13.7 G/DL (14.2-18.0); LYMPHOCYTES % (AUTO) 12.5 % (20.0-45.0); MEAN CORPUSCULAR VOLUME 87 FL (80-99); MONOCYTES % (AUTO) 6.7 % (1.0-10.0); NEUTROPHILS % (AUTO) 79.8 % (45.0-75.0); PLATELET COUNT 448 K/UL (150-450); RED BLOOD COUNT 4.39 M/UL (4.70-6.10); RED CELL DISTRIBUTION WIDTH 14.2 % (11.6-14.8); WHITE BLOOD COUNT 13.2 K/UL (4.8-10.8)
--- NOTE | 2020-04-12 07:52 | NUR ---
NURSE NOTES: Received pt from SHERRY Young, pt was resting no c/o pain no acute distress. call light w/in reach
[2020-04-12 08:00] VITALS: BP 115/75
[2020-04-12 08:08] LABS: ALANINE AMINOTRANSFERASE 175 U/L (12-78); ALBUMIN 2.6 G/DL (3.4-5.0); ALBUMIN/GLOBULIN RATIO 0.6 (1.0-2.7); ALKALINE PHOSPHATASE 238 U/L (46-116); ANION GAP 9 mmol/L (5-15); ASPARTATE AMINO TRANSFERASE 57 U/L (15-37); BILIRUBIN,TOTAL 0.6 MG/DL (0.2-1.0); BLOOD UREA NITROGEN 19 mg/dL (7-18); CALCIUM 8.5 MG/DL (8.5-10.1); CARBON DIOXIDE 26 MMOL/L (21-32); CHLORIDE 104 MMOL/L (98-107); CREATININE 0.7 MG/DL (0.55-1.30); POTASSIUM 3.9 MMOL/L (3.5-5.1); SODIUM 139 MMOL/L (136-145)
[2020-04-12] MEDS: Aspirin EC 81mg tab ORAL SCH (08:51)
[2020-04-12] MEDS: dexAMETHasone 10mg/ml Inj IV SCH (08:51)
[2020-04-12] MEDS: Enoxaparin 40mg Inj SUBQ SCH (08:57)
[2020-04-12 12:00] VITALS: BP 102/62
--- NOTE | 2020-04-12 12:25 | Pulmonology Progress Note ---
Subjective Constitutional: Denies: fever, chills HEENT: Repors: no symptoms Respiratory: Reports: dry cough, shortness of breath Cardiovascular: Reports: no symptoms Gastrointestinal/Abdominal: Denies: nausea, vomiting, diarrhea Musculoskeletal: Reports: pain - in back Allergies: Coded Allergies: No Known Allergies (Unverified , 04/09/20) Objective Last 24 Hour Vital Signs Date Time Temp Pulse Resp B/P (MAP) Pulse Ox O2 Delivery O2 Flow Rate FiO2 04/12/20 12:00 97.9 63 22 102/62 (75) 95 04/12/20 08:00 98.1 82 20 115/75 (88) 95 04/12/20 07:56 Room Air 04/12/20 04:00 97.7 67 20 111/67 (82) 94 04/12/20 00:00 97.3 65 20 121/72 (88) 94 04/11/20 21:00 Room Air 04/11/20 20:00 97.0 62 20 117/75 (89) 94 04/11/20 16:00 97.9 68 18 134/78 (96) 94 Intake and Output 04/11/20 04/12/20 19:00 07:00 Intake Total 1450 ml Balance 1450 ml Intake Oral 1200 ml IV Total 250 ml # Voids 2 HEENT: atraumatic Respiratory: lungs clear Cardiovascular: normal rate, regular rhythm Abdomen: soft, non tender Microbiology Date/Time Source Procedure Growth Status 04/09/20 18:20 Blood Blood Culture - Preliminary NO GROWTH AFTER 24 HOURS Resulted 04/09/20 18:05 Nasopharynx SARS-CoV-2 RdRp Gene Assay - Final Complete 04/09/20 18:05 Blood Blood Culture - Preliminary NO GROWTH AFTER 24 HOURS Resulted Laboratory Tests 04/12/20 05:30: White Blood Count 13.2H, Red Blood Count 4.39L, Hemoglobin 13.7L, Hematocrit 38.3L, Mean Corpuscular Volume 87, Mean Corpuscular Hemoglobin 31.3H, Mean Corpuscular Hemoglobin Concent 35.9, Red Cell Distribution Width 14.2, Platelet Count 448, Mean Platelet Volume 7.5, Neutrophils (%) (Auto) 79.8H, Lymphocytes (%) (Auto) 12.5L, Monocytes (%) (Auto) 6.7, Eosinophils (%) (Auto) 0.1, Basophils (%) (Auto) 0.9, Sodium Level 139, Potassium Level 3.9, Chloride Level 104, Carbon Dioxide Level 26, Anion Gap 9, Blood Urea Nitrogen 19H, Creatinine 0.7, Estimat Glomerular Filtration Rate > 60, Glucose Level 83, Calcium Level 8.5, Phosphorus Level 4.0, Magnesium Level 2.4, Total Bilirubin 0.6, Direct Bilirubin 0.1, Aspartate Amino Transf (AST/SGOT) 57H, Alanine Aminotransferase (ALT/SGPT) 175H, Alkaline Phosphatase 238H, Total Protein 6.6, Albumin 2.6L, Globulin 4.0, Albumin/Globulin Ratio 0.6L Current Medications Medications (Trade) Dose Ordered Sig/Dequan Route PRN Reason Start Time Stop Time Status Last Admin Dose Admin Acetaminophen (Tylenol) 650 mg Q6H PRN ORAL Temp >100.5 04/10/20 00:15 05/10/20 00:14 Albuterol Sulfate (Proventil MDI) 2 puff Q4H PRN INH Shortness of Breath 04/10/20 00:15 07/09/20 00:14 Aspirin (Ecotrin) 81 mg DAILY ORAL 04/10/20 09:00 05/25/20 08:59 04/12/20 08:51 Dexamethasone Sodium Phosphate (Decadron 10mg/ ml Inj) 6 mg DAILY IV 04/10/20 09:00 04/19/20 08:59 04/12/20 08:51 Dicyclomine HCl (Bentyl) 20 mg QIDPRN PRN ORAL Abdominal cramps 04/10/20 01:00 07/09/20 00:59 Enoxaparin Sodium (Lovenox) 40 mg DAILY SUBQ 04/11/20 09:00 07/10/20 08:59 04/12/20 08:57 Guaifenesin (Robitussin) 100 mg Q6H PRN ORAL For Cough 04/10/20 00:15 07/09/20 00:14 Prochlorperazine (Compazine) 5 mg BID PRN ORAL Nausea & Vomiting 04/10/20 01:00 05/10/20 00:59 Remdesivir 100 mg/ Sodium Chloride 250 ml @ 250 mls/hr Q24H IV 04/11/20 21:00 04/14/20 21:59 04/11/20 20:32 Assessment/Plan Assessment/Plan Assessment 1. COVID-19 pneumonia with hypoxia 2. Leukocytosis 3. Hyperglycemia PLAN: On remdesivir per ID (04/10-) -On Decadron (04/10-) - s/p broad-spectrum antibiotics in ER - O2 SAT 95% R/A - Monitor BS. Sec Decadron Will monitor closely The care for this patient was discussed with my supervising physician. Maikel James ADVERTISING OPERATIONS COORDINATOR Apr 12, 2020 12:25
--- NOTE | 2020-04-12 13:23 | Internal Med Progress Note ---
Subjective Physician Name Gokul Macias Attending Physician Gokul Macias M.D. Current Medications Medications (Trade) Dose Ordered Sig/Dequan Route PRN Reason Start Time Stop Time Status Last Admin Dose Admin Acetaminophen (Tylenol) 650 mg Q6H PRN ORAL Temp >100.5 04/10/20 00:15 05/10/20 00:14 Albuterol Sulfate (Proventil MDI) 2 puff Q4H PRN INH Shortness of Breath 04/10/20 00:15 07/09/20 00:14 Aspirin (Ecotrin) 81 mg DAILY ORAL 04/10/20 09:00 05/25/20 08:59 04/12/20 08:51 Dexamethasone Sodium Phosphate (Decadron 10mg/ ml Inj) 6 mg DAILY IV 04/10/20 09:00 04/19/20 08:59 04/12/20 08:51 Dicyclomine HCl (Bentyl) 20 mg QIDPRN PRN ORAL Abdominal cramps 04/10/20 01:00 07/09/20 00:59 Enoxaparin Sodium (Lovenox) 40 mg DAILY SUBQ 04/11/20 09:00 07/10/20 08:59 04/12/20 08:57 Guaifenesin (Robitussin) 100 mg Q6H PRN ORAL For Cough 04/10/20 00:15 07/09/20 00:14 Prochlorperazine (Compazine) 5 mg BID PRN ORAL Nausea & Vomiting 04/10/20 01:00 05/10/20 00:59 Remdesivir 100 mg/ Sodium Chloride 250 ml @ 250 mls/hr Q24H IV 04/11/20 21:00 04/14/20 21:59 04/11/20 20:32 Allergies: Coded Allergies: No Known Allergies (Unverified , 04/09/20) ROS Limited/Unobtainable: No Constitutional: Reports: weakness HEENT: Denies: no symptoms, eye pain, blurred vision, tearing, double vision, ear pain, ear discharge, nose pain, nose congestion, throat pain, throat swelling, mouth pain, mouth swelling, other Cardiovascular: Denies: no symptoms, chest pain, edema, irregular heart rate, lightheadedness, palpitations, syncope, other Respiratory: Denies: no symptoms, cough, orthopnea, shortness of breath, SOB with excertion, SOB at rest, sputum, stridor, wheezing, other Genitourinary: Denies: no symptoms, burning, discharge, frequency, flank pain, hematuria, incontinence, pain, urgency, other Neurologic/Psychiatric: Denies: no symptoms, anxiety, depressed, emotional problems, headache, numbness, paresthesia, pre-existing deficit, seizure, tingling, tremors, weakness, other All Systems: reviewed and negative except above Objective Last Vital Signs Date Time Temp Pulse Resp B/P (MAP) Pulse Ox O2 Delivery O2 Flow Rate FiO2 04/12/20 12:00 97.9 63 22 102/62 (75) 95 04/12/20 07:56 Room Air 04/11/20 09:00 4.0 Laboratory Tests Test 04/12/20 05:30 White Blood Count 13.2 K/UL (4.8-10.8) H Red Blood Count 4.39 M/UL (4.70-6.10) L Hemoglobin 13.7 G/DL (14.2-18.0) L Hematocrit 38.3 % (42.0-52.0) L Mean Corpuscular Volume 87 FL (80-99) Mean Corpuscular Hemoglobin 31.3 PG (27.0-31.0) H Mean Corpuscular Hemoglobin Concent 35.9 G/DL (32.0-36.0) Red Cell Distribution Width 14.2 % (11.6-14.8) Platelet Count 448 K/UL (150-450) Mean Platelet Volume 7.5 FL (6.5-10.1) Neutrophils (%) (Auto) 79.8 % (45.0-75.0) H Lymphocytes (%) (Auto) 12.5 % (20.0-45.0) L Monocytes (%) (Auto) 6.7 % (1.0-10.0) Eosinophils (%) (Auto) 0.1 % (0.0-3.0) Basophils (%) (Auto) 0.9 % (0.0-2.0) Sodium Level 139 MMOL/L (136-145) Potassium Level 3.9 MMOL/L (3.5-5.1) Chloride Level 104 MMOL/L (98-107) Carbon Dioxide Level 26 MMOL/L (21-32) Anion Gap 9 mmol/L (5-15) Blood Urea Nitrogen 19 mg/dL (7-18) H Creatinine 0.7 MG/DL (0.55-1.30) Estimat Glomerular Filtration Rate > 60 mL/min (>60) Glucose Level 83 MG/DL (74-106) Calcium Level 8.5 MG/DL (8.5-10.1) Phosphorus Level 4.0 MG/DL (2.5-4.9) Magnesium Level 2.4 MG/DL (1.8-2.4) Total Bilirubin 0.6 MG/DL (0.2-1.0) Direct Bilirubin 0.1 MG/DL (0.0-0.3) Aspartate Amino Transf (AST/SGOT) 57 U/L (15-37) H Alanine Aminotransferase (ALT/SGPT) 175 U/L (12-78) H Alkaline Phosphatase 238 U/L (46-116) H Total Protein 6.6 G/DL (6.4-8.2) Albumin 2.6 G/DL (3.4-5.0) L Globulin 4.0 g/dL Albumin/Globulin Ratio 0.6 (1.0-2.7) L Microbiology Date/Time Source Procedure Growth Status 04/09/20 18:20 Blood Blood Culture - Preliminary NO GROWTH AFTER 24 HOURS Resulted 04/09/20 18:05 Nasopharynx SARS-CoV-2 RdRp Gene Assay - Final Complete 04/09/20 18:05 Blood Blood Culture - Preliminary NO GROWTH AFTER 24 HOURS Resulted Intake and Output 04/11/20 04/12/20 19:00 07:00 Intake Total 1450 ml Balance 1450 ml Intake Oral 1200 ml IV Total 250 ml # Voids 2 Objective General appearance: alert, cooperative, no distress, appears stated age Head: Normocephalic, without obvious abnormality, atraumatic Eyes: conjunctivae/corneas clear. PERRL, EOM's intact. Fundi benign Throat: Lips, mucosa, and tongue normal. Teeth and gums normal Neck: supple, symmetrical, trachea midline, no adenopathy, thyroid: not enlarged, symmetric, no tenderness/mass/nodules, no carotid bruit and no JVD Lungs: clear to auscultation bilaterally Heart: regular rate and rhythm, S1, S2 normal, no murmur, click, rub or gallop Abdomen: soft, non-tender. Bowel sounds normal. No masses, no organomegaly Extremities: extremities normal, atraumatic, no cyanosis or edema Pulses: 2+ and symmetric Skin: Skin color, texture, turgor normal. No rashes or lesions Neurologic: Grossly normal Assessment/Plan Assessment/Plan #COVID pneumonia #hypoxemic resp failure #sepsis - admit inpatient - ID eval - pulm eval - dexamethsone - remdesevir - breathing tx - supplemental O2 - DCT ppx - monitor labs - avoid nephrotoxins Gokul Macias M.D. Apr 12, 2020 13:23
--- NOTE | 2020-04-12 13:50 | Infectious Diseases Prog Note ---
Assessment/Plan Assessment/Plan A 1. COVID19 pneumonia 2. Hypoxemia P 1. continue remdesivir day 3 2. continue dexamethasone day 4 3. continue isolation Subjective ROS Limited/Unobtainable: Yes Constitutional: Reports: no symptoms Respiratory: Reports: shortness of breath, other - mild Gastrointestinal/Abdominal: Reports: no symptoms Genitourinary: Reports: no symptoms Allergies: Coded Allergies: No Known Allergies (Unverified , 04/09/20) Objective Last 24 Hour Vital Signs Date Time Temp Pulse Resp B/P (MAP) Pulse Ox O2 Delivery O2 Flow Rate FiO2 04/12/20 12:00 97.9 63 22 102/62 (75) 95 04/12/20 08:00 98.1 82 20 115/75 (88) 95 04/12/20 07:56 Room Air 04/12/20 04:00 97.7 67 20 111/67 (82) 94 04/12/20 00:00 97.3 65 20 121/72 (88) 94 04/11/20 21:00 Room Air 04/11/20 20:00 97.0 62 20 117/75 (89) 94 04/11/20 16:00 97.9 68 18 134/78 (96) 94 Height (Feet): 5 Height (Inches): 7.00 Weight (Pounds): 170 General Appearance: no acute distress HEENT: mucous membranes moist Respiratory/Chest: other - oxygen by nasal cannula, 2 L/min Cardiovascular: normal rate Abdomen: soft, non tender Extremities: no edema Neurologic/Psychiatric: alert, oriented x 3, responsive Microbiology Date/Time Source Procedure Growth Status 04/09/20 18:20 Blood Blood Culture - Preliminary NO GROWTH AFTER 24 HOURS Resulted 04/09/20 18:05 Nasopharynx SARS-CoV-2 RdRp Gene Assay - Final Complete 04/09/20 18:05 Blood Blood Culture - Preliminary NO GROWTH AFTER 24 HOURS Resulted Laboratory Tests Test 04/12/20 05:30 White Blood Count 13.2 K/UL (4.8-10.8) H Red Blood Count 4.39 M/UL (4.70-6.10) L Hemoglobin 13.7 G/DL (14.2-18.0) L Hematocrit 38.3 % (42.0-52.0) L Mean Corpuscular Volume 87 FL (80-99) Mean Corpuscular Hemoglobin 31.3 PG (27.0-31.0) H Mean Corpuscular Hemoglobin Concent 35.9 G/DL (32.0-36.0) Red Cell Distribution Width 14.2 % (11.6-14.8) Platelet Count 448 K/UL (150-450) Mean Platelet Volume 7.5 FL (6.5-10.1) Neutrophils (%) (Auto) 79.8 % (45.0-75.0) H Lymphocytes (%) (Auto) 12.5 % (20.0-45.0) L Monocytes (%) (Auto) 6.7 % (1.0-10.0) Eosinophils (%) (Auto) 0.1 % (0.0-3.0) Basophils (%) (Auto) 0.9 % (0.0-2.0) Sodium Level 139 MMOL/L (136-145) Potassium Level 3.9 MMOL/L (3.5-5.1) Chloride Level 104 MMOL/L (98-107) Carbon Dioxide Level 26 MMOL/L (21-32) Anion Gap 9 mmol/L (5-15) Blood Urea Nitrogen 19 mg/dL (7-18) H Creatinine 0.7 MG/DL (0.55-1.30) Estimat Glomerular Filtration Rate > 60 mL/min (>60) Glucose Level 83 MG/DL (74-106) Calcium Level 8.5 MG/DL (8.5-10.1) Phosphorus Level 4.0 MG/DL (2.5-4.9) Magnesium Level 2.4 MG/DL (1.8-2.4) Total Bilirubin 0.6 MG/DL (0.2-1.0) Direct Bilirubin 0.1 MG/DL (0.0-0.3) Aspartate Amino Transf (AST/SGOT) 57 U/L (15-37) H Alanine Aminotransferase (ALT/SGPT) 175 U/L (12-78) H Alkaline Phosphatase 238 U/L (46-116) H Total Protein 6.6 G/DL (6.4-8.2) Albumin 2.6 G/DL (3.4-5.0) L Globulin 4.0 g/dL Albumin/Globulin Ratio 0.6 (1.0-2.7) L Current Medications Medications (Trade) Dose Ordered Sig/Dequan Route PRN Reason Start Time Stop Time Status Last Admin Dose Admin Acetaminophen (Tylenol) 650 mg Q6H PRN ORAL Temp >100.5 04/10/20 00:15 05/10/20 00:14 Albuterol Sulfate (Proventil MDI) 2 puff Q4H PRN INH Shortness of Breath 04/10/20 00:15 07/09/20 00:14 Aspirin (Ecotrin) 81 mg DAILY ORAL 04/10/20 09:00 05/25/20 08:59 04/12/20 08:51 Dexamethasone Sodium Phosphate (Decadron 10mg/ ml Inj) 6 mg DAILY IV 04/10/20 09:00 04/19/20 08:59 04/12/20 08:51 Dicyclomine HCl (Bentyl) 20 mg QIDPRN PRN ORAL Abdominal cramps 04/10/20 01:00 07/09/20 00:59 Enoxaparin Sodium (Lovenox) 40 mg DAILY SUBQ 04/11/20 09:00 07/10/20 08:59 04/12/20 08:57 Guaifenesin (Robitussin) 100 mg Q6H PRN ORAL For Cough 04/10/20 00:15 07/09/20 00:14 Prochlorperazine (Compazine) 5 mg BID PRN ORAL Nausea & Vomiting 04/10/20 01:00 05/10/20 00:59 Remdesivir 100 mg/ Sodium Chloride 250 ml @ 250 mls/hr Q24H IV 04/11/20 21:00 04/14/20 21:59 04/11/20 20:32 Tom Quan MD Apr 12, 2020 13:50
[2020-04-12 16:00] VITALS: BP 102/68
--- NOTE | 2020-04-12 19:11 | NUR ---
HAND-OFF: Report given to SHERRY Gutiérrez, pt is stable condition.
[2020-04-12 20:00] VITALS: BP_SYST 102; BP_SYST 126; BP_DIAS 66; BP_DIAS 75
--- NOTE | 2020-04-12 20:00 | NUR ---
NURSE NOTES: Patient received in bed, awake alert. No acute distress. C/o SOB at exertion but not at rest. SaO2>94% in room air. Will continue to monitor.
[2020-04-12] MEDS: Maintenance Dose:Remdesivir 100mg/NS 230ml x 4 Doses IV SCH ×2 (20:25)
[2020-04-13] VITALS (7 sets, daily range): BP systolic 95–121; BP diastolic 52–74
--- NOTE | 2020-04-13 07:14 | NUR ---
NURSE HAND-OFF: Important Events on Shift:[uneventful] Patient Status: [stable] Diet: [Regular] Pending Orders: [] Pending Results/Labs:[] Pending MD notification:[] Latest Vital Signs: Temperature 97.7 , Pulse 58 , B/P 104 /66 , Respiratory Rate 16 , O2 SAT 94 , Nasal Cannula, O2 Flow Rate 4.0 . Vital Sign Comment: [] Latest Schmidt Fall Score: 35 Fall Risk: Medium Risk Safety Measures: Call light Within Reach, Bed Alarm Zone 1, Side Rails Side Rails x2, Bed position Low and Locked. Fall Precautions: Patient Fall Education Report will be given to [Bruce Masterson RN].
--- NOTE | 2020-04-13 08:00 | NUR ---
NURSE NOTES: RN received report from SHERRY Nolan. RN received the patient in bed. Patient aaoX4, verbally responsive, tired, no s/s of respiratory distress on RA or pain noted. Patient complains of dizziness when ambulating which subsides when resting. IV patent, dry, intact and asymptomatic. RN communicated plan of care with the patient. Call light within reach, bed in lowest position and locked. RN will continue to monitor.
[2020-04-13 09:35] LABS: ALANINE AMINOTRANSFERASE 145 U/L (12-78); ALBUMIN 2.6 G/DL (3.4-5.0); ALBUMIN/GLOBULIN RATIO 0.6 (1.0-2.7); ALKALINE PHOSPHATASE 217 U/L (46-116); ANION GAP 11 mmol/L (5-15); ASPARTATE AMINO TRANSFERASE 38 U/L (15-37); BILIRUBIN,TOTAL 0.5 MG/DL (0.2-1.0); BLOOD UREA NITROGEN 18 mg/dL (7-18); CALCIUM 8.5 MG/DL (8.5-10.1); CARBON DIOXIDE 23 MMOL/L (21-32); CHLORIDE 105 MMOL/L (98-107); CREATININE 0.9 MG/DL (0.55-1.30); POTASSIUM 3.5 MMOL/L (3.5-5.1); SODIUM 139 MMOL/L (136-145)
[2020-04-13 09:37] LABS: BASOPHILS % (AUTO) 0.8 % (0.0-2.0); EOSINOPHILS % (AUTO) 0.9 % (0.0-3.0); HEMATOCRIT 41.5 % (42.0-52.0); HEMOGLOBIN 14.1 G/DL (14.2-18.0); LYMPHOCYTES % (AUTO) 14.8 % (20.0-45.0); MEAN CORPUSCULAR VOLUME 90 FL (80-99); MONOCYTES % (AUTO) 2.6 % (1.0-10.0); NEUTROPHILS % (AUTO) 80.9 % (45.0-75.0); PLATELET COUNT 485 K/UL (150-450); RED BLOOD COUNT 4.59 M/UL (4.70-6.10); RED CELL DISTRIBUTION WIDTH 12.9 % (11.6-14.8); WHITE BLOOD COUNT 15.8 K/UL (4.8-10.8)
[2020-04-13] MEDS: Aspirin EC 81mg tab ORAL SCH (09:45)
[2020-04-13] MEDS: dexAMETHasone 10mg/ml Inj IV SCH (09:45)
[2020-04-13] MEDS: Enoxaparin 40mg Inj SUBQ SCH (09:46)
--- NOTE | 2020-04-13 12:00 | Pulmonology Progress Note ---
Subjective ROS Limited/Unobtainable: Yes Constitutional: Reports: no symptoms HEENT: Repors: no symptoms Respiratory: Reports: dry cough, shortness of breath Cardiovascular: Reports: no symptoms Gastrointestinal/Abdominal: Reports: no symptoms, other - As per nursing staff patient in am pt was c/o right lower abdominal pain and communicated with PMD, at present patient denies pain Musculoskeletal: Reports: pain - in back Allergies: Coded Allergies: No Known Allergies (Unverified , 04/09/20) All Systems: reviewed and negative except above Objective Last 24 Hour Vital Signs Date Time Temp Pulse Resp B/P (MAP) Pulse Ox O2 Delivery O2 Flow Rate FiO2 04/13/20 08:00 96.8 74 18 104/52 (69) 93 04/13/20 04:04 97.7 58 16 104/66 (79) 94 04/13/20 00:01 97.5 71 16 121/74 (90) 94 04/12/20 21:00 Room Air 04/12/20 20:00 97.9 73 17 102/66 (78) 94 04/12/20 16:00 98.2 65 20 102/68 (79) 95 04/12/20 12:00 97.9 63 22 102/62 (75) 95 Intake and Output 04/12/20 04/13/20 19:00 07:00 Intake Total 360 ml 850 ml Balance 360 ml 850 ml Intake Oral 360 ml 240 ml IV Total 250 ml Other 360 ml # Voids 1 HEENT: atraumatic Respiratory: lungs clear Cardiovascular: normal rate, regular rhythm Abdomen: soft, non tender Laboratory Tests 04/13/20 08:05: White Blood Count 15.8H, Red Blood Count 4.59L, Hemoglobin 14.1L, Hematocrit 41.5L, Mean Corpuscular Volume 90, Mean Corpuscular Hemoglobin 30.8, Mean Corpuscular Hemoglobin Concent 34.1, Red Cell Distribution Width 12.9, Platelet Count 485H, Mean Platelet Volume 7.3, Neutrophils (%) (Auto) 80.9H, Lymphocytes (%) (Auto) 14.8L, Monocytes (%) (Auto) 2.6, Eosinophils (%) (Auto) 0.9, Basophils (%) (Auto) 0.8, Sodium Level 139, Potassium Level 3.5, Chloride Level 105, Carbon Dioxide Level 23, Anion Gap 11, Blood Urea Nitrogen 18, Creatinine 0.9, Estimat Glomerular Filtration Rate > 60, Glucose Level 143H, Calcium Level 8.5, Total Bilirubin 0.5, Direct Bilirubin 0.2, Aspartate Amino Transf (AST/SGOT) 38H, Alanine Aminotransferase (ALT/SGPT) 145H, Alkaline Phosphatase 217H, Total Protein 6.6, Albumin 2.6L, Globulin 4.0, Albumin/Globulin Ratio 0.6L Current Medications Medications (Trade) Dose Ordered Sig/Dequan Route PRN Reason Start Time Stop Time Status Last Admin Dose Admin Acetaminophen (Tylenol) 650 mg Q6H PRN ORAL Temp >100.5 04/10/20 00:15 05/10/20 00:14 Albuterol Sulfate (Proventil MDI) 2 puff Q4H PRN INH Shortness of Breath 04/10/20 00:15 07/09/20 00:14 Aspirin (Ecotrin) 81 mg DAILY ORAL 04/10/20 09:00 05/25/20 08:59 04/13/20 09:45 Dexamethasone Sodium Phosphate (Decadron 10mg/ ml Inj) 6 mg DAILY IV 04/10/20 09:00 04/19/20 08:59 04/13/20 09:45 Dicyclomine HCl (Bentyl) 20 mg QIDPRN PRN ORAL Abdominal cramps 04/10/20 01:00 07/09/20 00:59 Enoxaparin Sodium (Lovenox) 40 mg DAILY SUBQ 04/11/20 09:00 07/10/20 08:59 04/13/20 09:46 Guaifenesin (Robitussin) 100 mg Q6H PRN ORAL For Cough 04/10/20 00:15 07/09/20 00:14 Prochlorperazine (Compazine) 5 mg BID PRN ORAL Nausea & Vomiting 04/10/20 01:00 05/10/20 00:59 Remdesivir 100 mg/ Sodium Chloride 250 ml @ 250 mls/hr Q24H IV 04/11/20 21:00 04/14/20 21:59 04/12/20 20:25 Assessment/Plan Assessment/Plan Assessment 1. COVID-19 pneumonia with hypoxia 2. Leukocytosis 3. Hyperglycemia PLAN: On remdesivir per ID (04/10-) -WBC 15.8 defer to ID -On Decadron (04/10-) - s/p broad-spectrum antibiotics in ER - O2 SAT 93% R/A - Monitor BS. Sec Decadron Will monitor closely The care for this patient was discussed with my supervising physician. Maikel James RIB BENDER Apr 13, 2020 12:00
--- NOTE | 2020-04-13 12:21 | Internal Med Progress Note ---
Subjective Physician Name Gokul Macias Attending Physician Gokul Macias M.D. Current Medications Medications (Trade) Dose Ordered Sig/Dequan Route PRN Reason Start Time Stop Time Status Last Admin Dose Admin Acetaminophen (Tylenol) 650 mg Q6H PRN ORAL Temp >100.5 04/10/20 00:15 05/10/20 00:14 Albuterol Sulfate (Proventil MDI) 2 puff Q4H PRN INH Shortness of Breath 04/10/20 00:15 07/09/20 00:14 Aspirin (Ecotrin) 81 mg DAILY ORAL 04/10/20 09:00 05/25/20 08:59 04/13/20 09:45 Dexamethasone Sodium Phosphate (Decadron 10mg/ ml Inj) 6 mg DAILY IV 04/10/20 09:00 04/19/20 08:59 04/13/20 09:45 Dicyclomine HCl (Bentyl) 20 mg QIDPRN PRN ORAL Abdominal cramps 04/10/20 01:00 07/09/20 00:59 Enoxaparin Sodium (Lovenox) 40 mg DAILY SUBQ 04/11/20 09:00 07/10/20 08:59 04/13/20 09:46 Guaifenesin (Robitussin) 100 mg Q6H PRN ORAL For Cough 04/10/20 00:15 07/09/20 00:14 Prochlorperazine (Compazine) 5 mg BID PRN ORAL Nausea & Vomiting 04/10/20 01:00 05/10/20 00:59 Remdesivir 100 mg/ Sodium Chloride 250 ml @ 250 mls/hr Q24H IV 04/11/20 21:00 04/14/20 21:59 04/12/20 20:25 Allergies: Coded Allergies: No Known Allergies (Unverified , 04/09/20) ROS Limited/Unobtainable: No Constitutional: Reports: weakness HEENT: Denies: no symptoms, eye pain, blurred vision, tearing, double vision, ear pain, ear discharge, nose pain, nose congestion, throat pain, throat swelling, mouth pain, mouth swelling, other Cardiovascular: Denies: no symptoms, chest pain, edema, irregular heart rate, lightheadedness, palpitations, syncope, other Respiratory: Denies: no symptoms, cough, orthopnea, shortness of breath, SOB w ith excertion, SOB at rest, sputum, stridor, wheezing, other Gastrointestinal/Abdominal: Denies: no symptoms, abdomen distended, abdominal pain, black stools, tarry stools, blood in stool, constipated, diarrhea, difficulty swallowing, nausea, poor appetite, poor fluid intake, rectal bleeding, vomiting, other Genitourinary: Denies: no symptoms, burning, discharge, frequency, flank pain, hematuria, incontinence, pain, urgency, other Neurologic/Psychiatric: Denies: no symptoms, anxiety, depressed, emotional problems, headache, numbness, paresthesia, pre-existing deficit, seizure, tingling, tremors, weakness, other Objective Last Vital Signs Date Time Temp Pulse Resp B/P (MAP) Pulse Ox O2 Delivery O2 Flow Rate FiO2 04/13/20 12:00 97.7 67 20 95/66 (76) 93 04/12/20 21:00 Room Air 04/11/20 09:00 4.0 Laboratory Tests Test 04/13/20 08:05 White Blood Count 15.8 K/UL (4.8-10.8) H Red Blood Count 4.59 M/UL (4.70-6.10) L Hemoglobin 14.1 G/DL (14.2-18.0) L Hematocrit 41.5 % (42.0-52.0) L Mean Corpuscular Volume 90 FL (80-99) Mean Corpuscular Hemoglobin 30.8 PG (27.0-31.0) Mean Corpuscular Hemoglobin Concent 34.1 G/DL (32.0-36.0) Red Cell Distribution Width 12.9 % (11.6-14.8) Platelet Count 485 K/UL (150-450) H Mean Platelet Volume 7.3 FL (6.5-10.1) Neutrophils (%) (Auto) 80.9 % (45.0-75.0) H Lymphocytes (%) (Auto) 14.8 % (20.0-45.0) L Monocytes (%) (Auto) 2.6 % (1.0-10.0) Eosinophils (%) (Auto) 0.9 % (0.0-3.0) Basophils (%) (Auto) 0.8 % (0.0-2.0) Sodium Level 139 MMOL/L (136-145) Potassium Level 3.5 MMOL/L (3.5-5.1) Chloride Level 105 MMOL/L (98-107) Carbon Dioxide Level 23 MMOL/L (21-32) Anion Gap 11 mmol/L (5-15) Blood Urea Nitrogen 18 mg/dL (7-18) Creatinine 0.9 MG/DL (0.55-1.30) Estimat Glomerular Filtration Rate > 60 mL/min (>60) Glucose Level 143 MG/DL (74-106) H Calcium Level 8.5 MG/DL (8.5-10.1) Total Bilirubin 0.5 MG/DL (0.2-1.0) Direct Bilirubin 0.2 MG/DL (0.0-0.3) Aspartate Amino Transf (AST/SGOT) 38 U/L (15-37) H Alanine Aminotransferase (ALT/SGPT) 145 U/L (12-78) H Alkaline Phosphatase 217 U/L (46-116) H Total Protein 6.6 G/DL (6.4-8.2) Albumin 2.6 G/DL (3.4-5.0) L Globulin 4.0 g/dL Albumin/Globulin Ratio 0.6 (1.0-2.7) L Intake and Output 04/12/20 04/13/20 19:00 07:00 Intake Total 360 ml 850 ml Balance 360 ml 850 ml Intake Oral 360 ml 240 ml IV Total 250 ml Other 360 ml # Voids 1 Objective General appearance: alert, cooperative, no distress, appears stated age Head: Normocephalic, without obvious abnormality, atraumatic Eyes: conjunctivae/corneas clear. PERRL, EOM's intact. Fundi benign Throat: Lips, mucosa, and tongue normal. Teeth and gums normal Neck: supple, symmetrical, trachea midline, no adenopathy, thyroid: not enlarged, symmetric, no tenderness/mass/nodules, no carotid bruit and no JVD Lungs: clear to auscultation bilaterally Heart: regular rate and rhythm, S1, S2 normal, no murmur, click, rub or gallop Abdomen: soft, non-tender. Bowel sounds normal. No masses, no organomegaly Extremities: extremities normal, atraumatic, no cyanosis or edema Pulses: 2+ and symmetric Skin: Skin color, texture, turgor normal. No rashes or lesions Neurologic: Grossly normal Assessment/Plan Assessment/Plan #COVID pneumonia #hypoxemic resp failure #sepsis - admit inpatient - ID eval - pulm eval - dexamethsone - remdesevir - breathing tx - supplemental O2 - DCT ppx - monitor labs - avoid nephrotoxins Gokul Macias M.D. Apr 13, 2020 12:21
--- NOTE | 2020-04-13 14:00 | NUR ---
NURSE NOTES: Patient's concern of slight pain on the right abdomen and fatigue and dizziness are made aware to Dr. Macias. Per Dr. Macias, abdominal pain may subside once the patient makes a bowel movement and fatigue and dizziness are typical symptoms of Covid which will get better eventually. Vital signs stable, no s/s of respiratory distress noted. RN will continue to monitor.
--- NOTE | 2020-04-13 19:39 | NUR ---
NURSE HAND-OFF: Important Events on Shift:ready for discharge tomorrow Patient Status: stable Diet: regular Pending Orders: n/a Pending Results/Labs:n/a Pending MD notification:n/a Latest Vital Signs: Temperature 98.2 , Pulse 88 , B/P 111 /74 , Respiratory Rate 20 , O2 SAT 94 , Nasal Cannula, O2 Flow Rate 4.0 . Vital Sign Comment: stable Latest Schmidt Fall Score: 35 Fall Risk: Medium Risk Safety Measures: Call light Within Reach, Bed Alarm Zone 1, Side Rails Side Rails x2, Bed position Low and Locked. Fall Precautions: Patient Fall Education Report given to Alberto .
[2020-04-13] MEDS: Maintenance Dose:Remdesivir 100mg/NS 230ml x 4 Doses IV SCH ×2 (19:58)
--- NOTE | 2020-04-13 20:00 | NUR ---
NURSE NOTES: Patient received in bed,awake and alert. Denies pain or discomfort. In room air. Noted IV leaking. New IV access obtained. Will continue with plan of care.
[2020-04-14] VITALS: BP 108/50
[2020-04-14 04:38] VITALS: BP 109/71
--- NOTE | 2020-04-14 07:15 | NUR ---
NURSE HAND-OFF: Important Events on Shift:[uneventful] Patient Status: [stable] Diet: [Regular] Pending Orders: [discharge planning] Pending Results/Labs:[] Pending MD notification:[] Latest Vital Signs: Temperature 97.2 , Pulse 63 , B/P 109 /71 , Respiratory Rate 18 , O2 SAT 95 , Nasal Cannula, O2 Flow Rate 4.0 . Vital Sign Comment: [] Latest Schmidt Fall Score: 35 Fall Risk: Medium Risk Safety Measures: Call light Within Reach, Bed Alarm Zone 1, Side Rails Side Rails x2, Bed position Low and Locked. Fall Precautions: Patient Fall Education Report given to [Bruce Masterson RN].
[2020-04-14 07:27] LABS: HEMOGLOBIN 13.9 G/DL (14.2-18.0); MEAN CORPUSCULAR VOLUME 92 FL (80-99); PLATELET COUNT 487 K/UL (150-450); RED BLOOD COUNT 4.58 M/UL (4.70-6.10); RED CELL DISTRIBUTION WIDTH 12.5 % (11.6-14.8)
--- NOTE | 2020-04-14 07:48 | NUR ---
NURSE NOTES: Received report from Kirsten POWLEL, patient a/a/o x 4 laying in bed with no signs of distress or other issues at this time. per report patient O2 sat is 94% in RA. IV on the LFA gauge#22 SL. call light within reach, bed in lowest position. side rales up. I will f/u as needed.
[2020-04-14 07:53] LABS: ALANINE AMINOTRANSFERASE 128 U/L (12-78); ALBUMIN 2.6 G/DL (3.4-5.0); ALBUMIN/GLOBULIN RATIO 0.7 (1.0-2.7); ALKALINE PHOSPHATASE 194 U/L (46-116); ANION GAP 7 mmol/L (5-15); ASPARTATE AMINO TRANSFERASE 37 U/L (15-37); BILIRUBIN,DIRECT 0.2 MG/DL (0.0-0.3); BILIRUBIN,TOTAL 0.4 MG/DL (0.2-1.0); BLOOD UREA NITROGEN 18 mg/dL (7-18); CALCIUM 8.7 MG/DL (8.5-10.1); CARBON DIOXIDE 26 MMOL/L (21-32); CHLORIDE 106 MMOL/L (98-107); CREATININE 0.8 MG/DL (0.55-1.30); POTASSIUM 4.1 MMOL/L (3.5-5.1); SODIUM 139 MMOL/L (136-145)
[2020-04-14 08:00] VITALS: BP 104/60
[2020-04-14] MEDS: Aspirin EC 81mg tab ORAL SCH (09:30)
[2020-04-14] MEDS: dexAMETHasone 10mg/ml Inj IV SCH (09:31)
[2020-04-14] MEDS: Enoxaparin 40mg Inj SUBQ SCH (09:32)
[2020-04-14 12:00] VITALS: BP 107/68
--- NOTE | 2020-04-14 12:02 | Infectious Diseases Prog Note ---
Assessment/Plan Assessment/Plan antibiotics ; remdesivir A 1. covid 19 pneumonia on room air with O2 saturation 95 % P 1. complete remdesivir day 5 2. continue dexamethasone day 6 3. continue isolation Subjective Constitutional: Denies: fever, chills Respiratory: Reports: dry cough - mild; Denies: shortness of breath Gastrointestinal/Abdominal: Denies: nausea, vomiting, diarrhea Musculoskeletal: Denies: pain Allergies: Coded Allergies: No Known Allergies (Unverified , 04/09/20) Objective Last 24 Hour Vital Signs Date Time Temp Pulse Resp B/P (MAP) Pulse Ox O2 Delivery O2 Flow Rate FiO2 04/14/20 04:38 97.2 63 18 109/71 (84) 95 04/13/20 23:34 97.5 70 18 95/56 (69) 94 04/13/20 21:00 Room Air 04/13/20 20:00 97.5 78 18 102/63 (76) 94 04/13/20 16:00 98.2 88 20 111/74 (86) 94 Height (Feet): 5 Height (Inches): 7.00 Weight (Pounds): 170 Laboratory Tests Test 04/14/20 06:10 04/14/20 11:26 White Blood Count 18.0 K/UL (4.8-10.8) H Red Blood Count 4.58 M/UL (4.70-6.10) L Hemoglobin 13.9 G/DL (14.2-18.0) L Hematocrit 42.0 % (42.0-52.0) Mean Corpuscular Volume 92 FL (80-99) Mean Corpuscular Hemoglobin 30.3 PG (27.0-31.0) Mean Corpuscular Hemoglobin Concent 33.1 G/DL (32.0-36.0) Red Cell Distribution Width 12.5 % (11.6-14.8) Platelet Count 487 K/UL (150-450) H Mean Platelet Volume 7.4 FL (6.5-10.1) Neutrophils (%) (Auto) % (45.0-75.0) Lymphocytes (%) (Auto) % (20.0-45.0) Monocytes (%) (Auto) % (1.0-10.0) Eosinophils (%) (Auto) % (0.0-3.0) Basophils (%) (Auto) % (0.0-2.0) Differential Total Cells Counted 100 Neutrophils % (Manual) 68 % (45-75) Lymphocytes % (Manual) 20 % (20-45) Monocytes % (Manual) 9 % (1-10) Eosinophils % (Manual) 0 % (0-3) Basophils % (Manual) 0 % (0-2) Band Neutrophils 3 % (0-8) Platelet Estimate Adequate Platelet Morphology Normal Red Blood Cell Morphology Normal Sodium Level 139 MMOL/L (136-145) Potassium Level 4.1 MMOL/L (3.5-5.1) Chloride Level 106 MMOL/L (98-107) Carbon Dioxide Level 26 MMOL/L (21-32) Anion Gap 7 mmol/L (5-15) Blood Urea Nitrogen 18 mg/dL (7-18) Creatinine 0.8 MG/DL (0.55-1.30) Estimat Glomerular Filtration Rate > 60 mL/min (>60) Glucose Level 76 MG/DL (74-106) Calcium Level 8.7 MG/DL (8.5-10.1) Total Bilirubin 0.4 MG/DL (0.2-1.0) Direct Bilirubin 0.2 MG/DL (0.0-0.3) Aspartate Amino Transf (AST/SGOT) 37 U/L (15-37) Alanine Aminotransferase (ALT/SGPT) 128 U/L (12-78) H Alkaline Phosphatase 194 U/L (46-116) H Total Protein 6.3 G/DL (6.4-8.2) L Albumin 2.6 G/DL (3.4-5.0) L Globulin 3.7 g/dL Albumin/Globulin Ratio 0.7 (1.0-2.7) L POC Whole Blood Glucose Pending Current Medications Medications (Trade) Dose Ordered Sig/Dequan Route PRN Reason Start Time Stop Time Status Last Admin Dose Admin Acetaminophen (Tylenol) 650 mg Q6H PRN ORAL Temp >100.5 04/10/20 00:15 05/10/20 00:14 Albuterol Sulfate (Proventil MDI) 2 puff Q4H PRN INH Shortness of Breath 04/10/20 00:15 07/09/20 00:14 Aspirin (Ecotrin) 81 mg DAILY ORAL 04/10/20 09:00 05/25/20 08:59 04/14/20 09:30 Dexamethasone Sodium Phosphate (Decadron 10mg/ ml Inj) 6 mg DAILY IV 04/10/20 09:00 04/19/20 08:59 04/14/20 09:31 Dicyclomine HCl (Bentyl) 20 mg QIDPRN PRN ORAL Abdominal cramps 04/10/20 01:00 07/09/20 00:59 Enoxaparin Sodium (Lovenox) 40 mg DAILY SUBQ 04/11/20 09:00 07/10/20 08:59 04/14/20 09:32 Guaifenesin (Robitussin) 100 mg Q6H PRN ORAL For Cough 04/10/20 00:15 07/09/20 00:14 Prochlorperazine (Compazine) 5 mg BID PRN ORAL Nausea & Vomiting 04/10/20 01:00 05/10/20 00:59 Remdesivir 100 mg/ Sodium Chloride 250 ml @ 250 mls/hr Q24H IV 04/11/20 21:00 04/14/20 21:59 04/13/20 19:58 Chalino Sanders MD Apr 14, 2020 12:02
--- NOTE | 2020-04-14 17:30 | NUR ---
NURSE NOTES Received order to d/c. discharge instructions and belongings list given to the patient. IV removed prior to d/c. pt left the floor with no signs of distress or other issues at this time. pt's will provide transportation. I will f/u as needed.
--- NOTE | 2020-04-15 11:59 | Discharge Summary ---
Discharge Summary Discharge Summary _ DATE OF ADMISSION: 04/09/2020 DATE OF DISCHARGE: 04/14/2020 DISCHARGED BY: Dr Macias REASON FOR ADMISSION: 49 years old male with no significant past medical history presented for shortness of breath. Patient apparently was at [facility] on 03/30 diagnosed with pneumonia and started on oral antibiotic. He did have a coronavirus testing, but he did not know the results. His daughter had a Covid infection last month. Patient reported shortness of breath, which got progressively worse and was associated with a dry nonproductive cough. Paramedics found patient to be hypoxic , saturating about 87% on room air. He denied chest pain. No nausea ,vomiting ,diarrhea or abdominal pain. Upon evaluation rapid COVID-19 was positive. Chest x-ray demonstrated bilateral patchy infiltrates. Laboratory work-up revealed leukocytosis WBC 12.1 ,stable hemoglobin, hematocrit and platelet count. Lymphopenia noted. D-dimer 0.3, LDH 446, ferritin 993, CRP 79.7. Chemistry revealed stable electrolytes and renal parameters. Lactic acid 2.4 , repeated 1.2. Glucose 123. Noted elevated LFT : AST 110, ALT 169, alkaline phosphatase 322. Troponin was negative. EKG revealed sinus rhythm , no acute ischemic changes. Urinalysis revealed +1 protein , no evidence of UTI. In emergency department patient was placed on supplemental oxygen, received empiric antibiotic , steroid , 1 L of fluid and admitted for further management . CONSULTANTS: pulmonary Dr. Topete ID specialist Dr. Sanders HOSPITAL COURSE: Patient admitted to isolation room. Supplemental oxygen provided and titrated to keep pulse oximetry above 92%. HFA provided . DVT prophylaxis instituted. Patient received remdesivir and dexamethasone. As patient clinically improved , he was able to be weaned to room air. Leukocytosis resolved. LFT were closely monitored, trending down . Prior to discharge AST down to normal, ALT trending down. Elevated LFT presumed to be due to Covid infection as well. Patient clinically stabilized and was ready for discharge home. FINAL DIAGNOSES: COVID-19 pneumonia Hypoxemic respiratory failure Sepsis b DISCHARGE MEDICATIONS: See Medication Reconciliation list. DISCHARGE INSTRUCTIONS: Patient was discharged home. Continue self-isolation for total of 10 days. I have been assigned to dictate discharge summary for this account. I was not involved in the patient's management. Yana Grant NP Apr 15, 2020 11:59
== END 2020-04-14 16:55 | disposition home or self-care (01) | DRG 871 ==
LOC: EDBD 16:51 → EMR 17:47 → 4E 18:27 → EDBEDREQ 21:41
DX: A41.89 Other specified sepsis (principal); U07.1 COVID-19; J12.89 Other viral pneumonia; J96.91 Respiratory failure, unspecified with hypoxia; E87.1 Hypo-osmolality and hyponatremia
CPT/HCPCS: 36415; 71045; 80048; 80053; 81003; 82248; 82728; 82803; 82962; 83605; 83615; 83690; 83735; 83880; 84100; 84484; 85007; 85025; 85379; 85610; 85730; 86140; 87040; 93005; 96361; 96365; 96367; 96375; 99291; J3490; J7030; U0002